=== PATIENT | female | born 1940 | race Caucasian/White ===

== ENCOUNTER 2017-02-17 21:15 | Inpatient (IN) | payer MEDICARE, BC ==
[~2017-02-17] VITALS: Ht 162.6 cm; Wt 72.8 kg
[~2017-02-17 21:15] MED LIST: ADVAIR IH; ASPIRIN 32325 MG/TAB PO; AZULFIDINE ENT500 MG PO; COUMADIN4 MG PO; IPRATROPIUM BROM3 M1 IH; LASIX 20MG TABL20 MG PO; LEXAPRO 10MG10 MG PO; LIPITOR 10MG10 MG PO; LISINOPRIL/HCTZ1 TA1 PO; LORTAB 5/500 501 TAB PO; MASON NATURAL2000 IU PO; NEURONTIN100 MG/CAP PO; NORCO 325 MG-51 TAB PO; PERCOCET 5/321 UDTAB PO; PREDNISONE10 MG PO; PRILOSEC10 MG PO; PRINIVIL10 MG PO; PRINZIDE 12.5 M1 TAB PO; RT SPIRIVA18 MCG IH; SULFASALAZINE PO; ZOCOR 40MG40 MG PO; spiriva handihaler
[2017-02-17 22:08] LABS: BASO % 0.3 % (0.0-2.0); EOS % 0.1 % (0-4.0); GRAN # 5.8 (1.4-6.5); GRAN % 72.3 % (42.2-75.2); HEMATOCRIT 41.8 % (37.0-47.0); HEMOGLOBIN 13.2 g/dl (12.5-16.0); LYMPH # 1.2 (1.2-3.4); LYMPH % 15.1 % (20.0-51.0); MEAN CELL VOLUME 99 fl (80.0-100.0); MEAN CORPUSCULAR HEMOGLOBIN 31 pg (27.0-31.0); MEAN CORPUSCULAR HGB CONC 32 g/dl (33.0-37.0); MEAN PLATELET VOLUME 10.2 fl (7.4-10.4); MONO % 11.9 % (1.7-9.3); PLATELET COUNT 106 K/mm3 (130-400); RED BLOOD COUNT 4.24 M/mm3 (4.10-5.30); REDCELL DISTRIBUTION WIDTH-CV 16.5 % (11.5-14.5)
[2017-02-17 22:22] LABS: ADJUSTED CALCIUM 9.5 mg/dL (8.4-10.2); ALBUMIN 3.7 gm/dL (3.5-5.0); BILIRUBIN,TOTAL 1.1 mg/dL (0.0-1.0); CALCIUM 9.3 mg/dL (8.4-10.2); CREATININE, serum 1.95 mg/dL (0.52-1.25); POTASSIUM 4.8 mmol/L (3.4-5.0); TOTAL PROTEIN 7.4 gm/dL (6.4-8.2)
[2017-02-17] MEDS ORDERED: LIPITOR20 MG PO (23:01)
[2017-02-17] MEDS ORDERED: TOPROL XL 25MG25 MG PO (23:02)
[2017-02-17] MEDS ORDERED: ANORO IH (23:03)
[2017-02-17] MEDS ORDERED: HCTZ12.5TAB PO (23:09)
[2017-02-18 01:26] VITALS: BP 151/88; PULSE 79; TEMP 97.5
[2017-02-18] MEDS ORDERED: PREDNISONE10 MG PO (01:43)
[2017-02-18] MEDS ORDERED: PREDNISONE 5MG5 MG PO (01:44)
[2017-02-18] MEDS ORDERED: COUMADIN 3MG3 MG/TAB PO (01:49)
[2017-02-18 03:37] VITALS: BP 135/83; PULSE 86; TEMP 98.1
[2017-02-18 07:22] LABS: INR 2.2 (0.8-3.0); PROTHROMBIN TIME 25.5 SECONDS (9.7-12.8)
[2017-02-18 07:38] VITALS: BP 135/80; PULSE 89; TEMP 98.7
[2017-02-18 11:28] VITALS: BP 140/88; PULSE 70; TEMP 98.8
[2017-02-18 16:00] VITALS: BP 148/86; PULSE 69; TEMP 98.5
[2017-02-18 23:28] VITALS: BP 143/78; PULSE 72; TEMP 97.9
[2017-02-19 04:30] VITALS: BP 159/65; PULSE 85; TEMP 99
[2017-02-19 07:51] VITALS: BP 151/94; PULSE 108; TEMP 98.4
[2017-02-19 09:29] LABS: INR 2.6 (0.8-3.0); PROTHROMBIN TIME 29.6 SECONDS (9.7-12.8)
[2017-02-19 11:55] VITALS: BP 131/79; PULSE 67; TEMP 97.6
[2017-02-19 15:56] VITALS: BP 135/83; PULSE 70; TEMP 97.1
[2017-02-19 19:19] LABS: PH 5 (5-8); SQUAMOUS EPITHELIAL None Seen /hpf; URINE APPEARANCE Clear; URINE BACTERIA None Seen /hpf; URINE BILIRUBIN Negative (NEGATIVE); URINE BLOOD Negative (NEGATIVE); URINE COLOR Yellow; URINE GLUCOSE Negative (NEGATIVE); URINE KETONE Negative (NEGATIVE); URINE RBC None Seen /hpf; URINE UROBILINOGEN Negative (NEGATIVE); URINE WBC 0-2 /hpf
[2017-02-19 19:42] VITALS: BP 149/81; PULSE 62; TEMP 97.8
[2017-02-20] VITALS (7 sets, daily range): BP systolic 116–162; BP diastolic 69–94; PULSE 64–74; TEMP 97.7–98.5
[2017-02-20 09:11] LABS: INR 2.8 (0.8-3.0); PROTHROMBIN TIME 32.3 SECONDS (9.7-12.8)
[2017-02-21 04:56] VITALS: BP 148/84; PULSE 72; TEMP 98.4
[2017-02-21 07:31] VITALS: BP 137/90; PULSE 70; TEMP 97.8
[2017-02-21 07:50] LABS: BASO % 0.2 % (0.0-2.0); EOS # 0.1 (0.0-0.7); EOS % 1.2 % (0-4.0); GRAN # 3.4 (1.4-6.5); GRAN % 69.1 % (42.2-75.2); HEMATOCRIT 38.6 % (37.0-47.0); LYMPH # 0.9 (1.2-3.4); MEAN CELL VOLUME 100 fl (80.0-100.0); MEAN CORPUSCULAR HEMOGLOBIN 31 pg (27.0-31.0); MEAN CORPUSCULAR HGB CONC 31 g/dl (33.0-37.0); MEAN PLATELET VOLUME 10.3 fl (7.4-10.4); MONO # 0.6 (0.1-0.6); MONO % 11.3 % (1.7-9.3); PLATELET COUNT 126 K/mm3 (130-400); RED BLOOD COUNT 3.86 M/mm3 (4.10-5.30); REDCELL DISTRIBUTION WIDTH-CV 16.2 % (11.5-14.5); WHITE BLOOD COUNT 4.9 K/mm3 (4.8-10.8)
[2017-02-21 08:09] LABS: INR 3.2 (0.8-3.0); PROTHROMBIN TIME 37.2 SECONDS (9.7-12.8)
[2017-02-21 08:22] LABS: CREATININE, serum 1.65 mg/dL (0.52-1.25); POTASSIUM 3.7 mmol/L (3.4-5.0)
[2017-02-21 12:06] VITALS: BP 142/68; PULSE 58; TEMP 97.8
[2017-02-21 12:26] VITALS: BP 142/68; PULSE 58; TEMP 97.8
[2017-02-21] MEDS ORDERED: COUMADIN4 MG PO (12:26)
[2017-02-21] MEDS ORDERED: COUMADIN 3MG3 MG/TAB PO (12:27)
== END 2017-02-21 14:53 | DRG 554 ==
LOC: COL.ER 21:15 → MEDICAL 02-18 00:37
PROVIDERS: Emergency Medicine; Internal Medicine; Nurse Practitioner
DX: M87.852 Other osteonecrosis, left femur (principal); C56.9 Malignant neoplasm of unspecified ovary; N18.4 Chronic kidney disease, stage 4 (severe); N17.9 Acute kidney failure, unspecified; I12.9 Hypertensive chronic kidney disease with stage 1 through stage 4 chronic kidney disease, or unspecified chronic kidney disease; M06.9 Rheumatoid arthritis, unspecified; E78.5 Hyperlipidemia, unspecified; G62.9 Polyneuropathy, unspecified; J44.9 Chronic obstructive pulmonary disease, unspecified; I10 Essential (primary) hypertension; R33.9 Retention of urine, unspecified; Z86.718 Personal history of other venous thrombosis and embolism; Z87.891 Personal history of nicotine dependence; Z79.01 Long term (current) use of anticoagulants
CPT/HCPCS: 99233-AI; 99239; G8987-GO; G8988-GO; J7030; J7512

== ENCOUNTER 2017-03-22 15:23 | Inpatient (IN) | payer MEDICARE, BC ==
[~2017-03-22] VITALS: Ht 162.6 cm; Wt 79.7 kg
[~2017-03-22 15:23] MED LIST changes: +ANORO IH; +COUMADIN 3MG3 MG/TAB PO; +HCTZ12.5TAB PO; +LIPITOR20 MG PO; +PREDNISONE 5MG5 MG PO; +TOPROL XL 25MG25 MG PO
[2017-04-12] MEDS ORDERED: COUMADIN4 MG PO (23:55)
[2017-04-12] MEDS ORDERED: PREDNISONE 5MG5 MG PO (23:58)
[2017-04-12] MEDS ORDERED: MIRALAX PA17 GM/Dose PO (23:59)
[2017-04-12] MEDS ORDERED: AZULFIDINE ENT500 MG PO (23:59)
[2017-04-13] MEDS ORDERED: NORCO 325 MG-51 TAB PO (00:01)
[2017-04-13] MEDS ORDERED: NYSTATIN OR100 MU/ML PO (04:18)
[2017-04-16] MEDS ORDERED: SODIUM BICARBO650 MG PO (10:55)
[2017-04-16] MEDS ORDERED: NEURONTIN100 MG/CAP PO (10:55)
[2017-04-16] MEDS ORDERED: PREDNISONE 5MG5 MG PO (11:02)
[2017-04-16] MEDS ORDERED: COUMADIN 1MG1 MG/TAB PO (11:02)
[2017-04-16] MEDS ORDERED: ZOFRAN 4MG T4 MG/TAB PO (11:03)
[2017-04-16] MEDS ORDERED: NORCO 325 MG-51 TAB PO (11:04)
[2017-04-16] MEDS ORDERED: TYLENOL 325MG325 MG PO (11:04)
[2017-04-16] MEDS ORDERED: LASIX 20MG TABL20 MG PO (11:04)
[2017-04-28] VITALS (9 sets, daily range): BP systolic 78–128; BP diastolic 50–77; PULSE 87–103; TEMP 97–97.6
[2017-04-28] MEDS ORDERED: FENTANYL 12MCG TD (11:23)
[2017-04-28] MEDS ORDERED: LASIX 40MG TABL40 MG PO (11:25)
[2017-04-28] MEDS ORDERED: PREDNISONE 2.52.5 MG PO (11:28)
[2017-04-28] MEDS ORDERED: ALMACONE 360 M360 ML PO (11:32)
[2017-04-28] MEDS ORDERED: DULCOLAX S10 MG/SUPP RC (11:32)
[2017-04-28] MEDS ORDERED: IMODIUM A-D2 MG PO (11:33)
[2017-04-28] MEDS ORDERED: MILK OF MA400 MG/52 PO (11:33)
[2017-04-28 11:56] LABS: INR 1.4 (0.8-3.0); PROTHROMBIN TIME 16.2 SECONDS (9.7-12.8)
[2017-04-28 22:00] LABS: COLLECTION METHOD CLEAN CATCH
[2017-04-28 22:03] LABS: BASO % 0.1 % (0.0-2.0); GRAN # 7.8 (1.4-6.5); GRAN % 90.4 % (42.2-75.2); LYMPH # 0.4 (1.2-3.4); LYMPH % 4.5 % (20.0-51.0); MEAN CELL VOLUME 101 fl (80.0-100.0); MEAN CORPUSCULAR HGB CONC 30 g/dl (33.0-37.0); MEAN PLATELET VOLUME 10.5 fl (7.4-10.4); MONO # 0.4 (0.1-0.6); MONO % 4.4 % (1.7-9.3); PLATELET COUNT 93 K/mm3 (130-400); RED BLOOD COUNT 2.44 M/mm3 (4.10-5.30); WHITE BLOOD COUNT 8.6 K/mm3 (4.8-10.8)
[2017-04-28 22:07] LABS: MUCOUS Present /lpf; PH 5 (5-8); SQUAMOUS EPITHELIAL 0-2 /hpf; URINE APPEARANCE Clear; URINE BACTERIA None Seen /hpf; URINE BILIRUBIN Negative (NEGATIVE); URINE BLOOD 2+ (NEGATIVE); URINE COLOR Yellow; URINE GLUCOSE Negative (NEGATIVE); URINE KETONE Negative (NEGATIVE); URINE LEUKOCYTE ESTERASE Negative (NEGATIVE); URINE PROTEIN(semi-quant) 1+ (NEGATIVE); URINE RBC 0-2 /hpf; URINE UROBILINOGEN Negative (NEGATIVE)
[2017-04-28 22:09] LABS: HEMATOCRIT 24.7 % (37.0-47.0); HEMOGLOBIN 7.3 g/dl (12.5-16.0); MEAN CORPUSCULAR HEMOGLOBIN 30 pg (27.0-31.0)
[2017-04-28 22:19] LABS: ADJUSTED CALCIUM 8.8 mg/dL (8.4-10.2); ALBUMIN 1.9 gm/dL (3.5-5.0); BILIRUBIN,TOTAL 0.6 mg/dL (0.0-1.0); C-REACTIVE PROTEIN 7.2 mg/dL (0.0-0.9); CALCIUM 7.1 mg/dL (8.4-10.2); CREATININE, serum 1.12 mg/dL (0.52-1.25); POTASSIUM 3.6 mmol/L (3.4-5.0); TOTAL PROTEIN 4.2 gm/dL (6.4-8.2)
[2017-04-28 22:30] LABS: ERYTHROCYTE SEDIMENTATION RATE 100 mm/hr (0-30)
[2017-04-29] VITALS (36 sets, daily range): BP systolic 11–129; BP diastolic 43–70; PULSE 74–168; TEMP 96.8–98.9
[2017-04-29 02:24] LABS: HEMATOCRIT 18.7 % (37.0-47.0); HEMOGLOBIN 5.5 g/dl (12.5-16.0)
[2017-04-29 08:13] LABS: BASO % 0.1 % (0.0-2.0); GRAN # 6.4 (1.4-6.5); GRAN % 86.8 % (42.2-75.2); LYMPH # 0.6 (1.2-3.4); LYMPH % 7.8 % (20.0-51.0); MEAN CORPUSCULAR HGB CONC 31 g/dl (33.0-37.0); MEAN PLATELET VOLUME 10.7 fl (7.4-10.4); MONO # 0.4 (0.1-0.6); PLATELET COUNT 76 K/mm3 (130-400); RED BLOOD COUNT 2.93 M/mm3 (4.10-5.30); WHITE BLOOD COUNT 7.3 K/mm3 (4.8-10.8)
[2017-04-29 08:14] LABS: HEMATOCRIT 27.9 % (37.0-47.0); HEMOGLOBIN 8.7 g/dl (12.5-16.0); MEAN CELL VOLUME 95 fl (80.0-100.0); MEAN CORPUSCULAR HEMOGLOBIN 30 pg (27.0-31.0)
[2017-04-29 08:30] LABS: CALCIUM 7.1 mg/dL (8.4-10.2); CREATININE, serum 1.14 mg/dL (0.52-1.25); POTASSIUM 3.9 mmol/L (3.4-5.0)
[2017-04-29 09:22] LABS: INR 1.4 (0.8-3.0); PROTHROMBIN TIME 15.7 SECONDS (9.7-12.8)
[2017-04-29 13:27] LABS: HEMATOCRIT 27.8 % (37.0-47.0); HEMOGLOBIN 8.6 g/dl (12.5-16.0)
[2017-04-30] VITALS (13 sets, daily range): BP systolic 108–136; BP diastolic 62–86; PULSE 44–102; TEMP 97.2–99
[2017-04-30 06:44] LABS: BASO % 0.2 % (0.0-2.0); GRAN # 4.8 (1.4-6.5); GRAN % 78.6 % (42.2-75.2); LYMPH # 0.8 (1.2-3.4); LYMPH % 13.2 % (20.0-51.0); MEAN CELL VOLUME 98 fl (80.0-100.0); MEAN CORPUSCULAR HGB CONC 30 g/dl (33.0-37.0); MEAN PLATELET VOLUME 10.9 fl (7.4-10.4); MONO # 0.4 (0.1-0.6); MONO % 7.3 % (1.7-9.3); PLATELET COUNT 68 K/mm3 (130-400); RED BLOOD COUNT 2.46 M/mm3 (4.10-5.30); WHITE BLOOD COUNT 6.1 K/mm3 (4.8-10.8)
[2017-04-30 06:45] LABS: HEMOGLOBIN 7.2 g/dl (12.5-16.0); MEAN CORPUSCULAR HEMOGLOBIN 29 pg (27.0-31.0)
[2017-04-30 06:54] LABS: CALCIUM 7.5 mg/dL (8.4-10.2); CREATININE, serum 1.27 mg/dL (0.52-1.25); POTASSIUM 3.2 mmol/L (3.4-5.0)
[2017-04-30 07:51] LABS: INR 1.6 (0.8-3.0); PROTHROMBIN TIME 17.7 SECONDS (9.7-12.8)
[2017-04-30 13:30] LABS: HEMATOCRIT 24.2 % (37.0-47.0); HEMOGLOBIN 7.5 g/dl (12.5-16.0)
[2017-05-01 02:49] VITALS: BP 135/74; PULSE 102; TEMP 97.7
[2017-05-01 05:11] VITALS: BP 139/78; PULSE 91; TEMP 98.3
[2017-05-01 06:26] LABS: BASO % 0.2 % (0.0-2.0); EOS % 0.7 % (0-4.0); GRAN # 3.9 (1.4-6.5); GRAN % 73.5 % (42.2-75.2); LYMPH % 18.5 % (20.0-51.0); MEAN CELL VOLUME 98 fl (80.0-100.0); MEAN CORPUSCULAR HGB CONC 30 g/dl (33.0-37.0); MEAN PLATELET VOLUME 10.9 fl (7.4-10.4); MONO # 0.3 (0.1-0.6); MONO % 5.8 % (1.7-9.3); PLATELET COUNT 71 K/mm3 (130-400); RED BLOOD COUNT 2.57 M/mm3 (4.10-5.30); WHITE BLOOD COUNT 5.3 K/mm3 (4.8-10.8)
[2017-05-01 06:36] LABS: HEMATOCRIT 25.2 % (37.0-47.0); HEMOGLOBIN 7.6 g/dl (12.5-16.0); MEAN CORPUSCULAR HEMOGLOBIN 30 pg (27.0-31.0)
[2017-05-01 06:41] LABS: CALCIUM 7.5 mg/dL (8.4-10.2); CREATININE, serum 1.2 mg/dL (0.52-1.25); MAGNESIUM 1.4 mg/dL (1.6-2.3); POTASSIUM 3.6 mmol/L (3.4-5.0)
[2017-05-01 09:41] LABS: INR 1.7 (0.8-3.0); PROTHROMBIN TIME 19.4 SECONDS (9.7-12.8)
[2017-05-01 10:07] VITALS: BP 122/66; PULSE 111; TEMP 98.3
[2017-05-01 13:04] VITALS: BP 129/83; PULSE 98; TEMP 98.1
[2017-05-01 18:14] VITALS: BP 126/74; PULSE 118; TEMP 98.6
[2017-05-01 22:04] VITALS: BP 144/79; PULSE 98; TEMP 98.1
[2017-05-02 02:00] VITALS: BP 146/79; PULSE 107; TEMP 98.7
[2017-05-02 05:55] VITALS: BP 129/71; PULSE 100; TEMP 97.8
[2017-05-02 07:26] LABS: MEAN CELL VOLUME 99 fl (80.0-100.0); MEAN CORPUSCULAR HGB CONC 30 g/dl (33.0-37.0); MEAN PLATELET VOLUME 11.4 fl (7.4-10.4); PLATELET COUNT 80 K/mm3 (130-400); RED BLOOD COUNT 2.75 M/mm3 (4.10-5.30); WHITE BLOOD COUNT 5.9 K/mm3 (4.8-10.8)
[2017-05-02 07:31] LABS: ADD PATHOLOGY DIFF REVIEW NO; HEMATOCRIT 27.1 % (37.0-47.0); HEMOGLOBIN 8.1 g/dl (12.5-16.0); MEAN CORPUSCULAR HEMOGLOBIN 29 pg (27.0-31.0)
[2017-05-02 07:37] LABS: CALCIUM 7.9 mg/dL (8.4-10.2); CREATININE, serum 1.07 mg/dL (0.52-1.25); MAGNESIUM 1.6 mg/dL (1.6-2.3); POTASSIUM 3.9 mmol/L (3.4-5.0)
[2017-05-02 07:55] LABS: C-REACTIVE PROTEIN 15.9 mg/dL (0.0-0.9)
[2017-05-02 08:17] LABS: BAND 8 % (0-10); EOSINOPHIL 1 % (0-4); LYMPHOCYTE 23 % (20.0-51.0); NEUTROPHILS 63 % (42.0-75.2); PLATELET ESTIMATE NORMAL (NORMAL); TOTAL CELLS COUNTED 100
[2017-05-02 08:18] LABS: ANISOCYTOSIS 3+; HYPOCHROMIA 2+
[2017-05-02 09:35] VITALS: BP 144/75; PULSE 105; TEMP 98.6
[2017-05-02 14:27] VITALS: BP 134/79; PULSE 103; TEMP 98
[2017-05-02 18:16] VITALS: BP 136/87; PULSE 103; TEMP 98.3
[2017-05-02 22:03] VITALS: BP 134/75; PULSE 105; TEMP 97.7
[2017-05-03 02:04] VITALS: BP 125/69; PULSE 108; TEMP 98
[2017-05-03 06:36] VITALS: BP 126/71; PULSE 112; TEMP 99.9
[2017-05-03 08:14] LABS: BASO % 0.4 % (0.0-2.0); GRAN # 3.9 (1.4-6.5); LYMPH % 18.9 % (20.0-51.0); MEAN CELL VOLUME 99 fl (80.0-100.0); MEAN CORPUSCULAR HGB CONC 30 g/dl (33.0-37.0); MEAN PLATELET VOLUME 10.6 fl (7.4-10.4); MONO # 0.4 (0.1-0.6); PLATELET COUNT 81 K/mm3 (130-400); RED BLOOD COUNT 2.74 M/mm3 (4.10-5.30); WHITE BLOOD COUNT 5.4 K/mm3 (4.8-10.8)
[2017-05-03 08:15] LABS: HEMATOCRIT 27.1 % (37.0-47.0); MEAN CORPUSCULAR HEMOGLOBIN 29 pg (27.0-31.0)
[2017-05-03 08:21] LABS: CALCIUM 8.2 mg/dL (8.4-10.2); CREATININE, serum 1.06 mg/dL (0.52-1.25); POTASSIUM 3.9 mmol/L (3.4-5.0)
[2017-05-03 09:37] VITALS: BP 128/31; BP 99/54; PULSE 110; PULSE 60; TEMP 98.6
[2017-05-03 14:27] VITALS: BP 142/73; PULSE 102; TEMP 98.5
[2017-05-03 18:11] VITALS: BP 151/83; PULSE 103; TEMP 98.5
[2017-05-03 21:51] VITALS: BP 142/78; PULSE 109; TEMP 98.5
[2017-05-04] VITALS (10 sets, daily range): BP systolic 102–152; BP diastolic 57–90; PULSE 96–113; TEMP 97.7–100.5
[2017-05-04 06:56] LABS: BASO % 0.2 % (0.0-2.0); EOS # 0.1 (0.0-0.7); EOS % 1.2 % (0-4.0); GRAN # 3.2 (1.4-6.5); GRAN % 65.8 % (42.2-75.2); LYMPH # 1.1 (1.2-3.4); MEAN CELL VOLUME 98 fl (80.0-100.0); MEAN CORPUSCULAR HGB CONC 30 g/dl (33.0-37.0); MONO # 0.4 (0.1-0.6); MONO % 8.8 % (1.7-9.3); PLATELET COUNT 84 K/mm3 (130-400); RED BLOOD COUNT 2.71 M/mm3 (4.10-5.30); WHITE BLOOD COUNT 4.9 K/mm3 (4.8-10.8)
[2017-05-04 06:58] LABS: HEMATOCRIT 26.5 % (37.0-47.0); MEAN CORPUSCULAR HEMOGLOBIN 30 pg (27.0-31.0)
[2017-05-04 07:00] LABS: CALCIUM 8.1 mg/dL (8.4-10.2); CREATININE, serum 1.1 mg/dL (0.52-1.25); MAGNESIUM 1.5 mg/dL (1.6-2.3); POTASSIUM 3.8 mmol/L (3.4-5.0)
[2017-05-05] VITALS (18 sets, daily range): BP systolic 92–127; BP diastolic 48–71; PULSE 97–114; TEMP 97.7–98.9
[2017-05-05 06:10] LABS: BASO % 0.2 % (0.0-2.0); EOS # 0.1 (0.0-0.7); EOS % 1.5 % (0-4.0); GRAN # 3.8 (1.4-6.5); GRAN % 62.5 % (42.2-75.2); LYMPH # 1.5 (1.2-3.4); LYMPH % 25.2 % (20.0-51.0); MEAN CELL VOLUME 101 fl (80.0-100.0); MEAN CORPUSCULAR HGB CONC 29 g/dl (33.0-37.0); MEAN PLATELET VOLUME 11.4 fl (7.4-10.4); MONO # 0.6 (0.1-0.6); MONO % 10.1 % (1.7-9.3); PLATELET COUNT 84 K/mm3 (130-400); RED BLOOD COUNT 2.15 M/mm3 (4.10-5.30); WHITE BLOOD COUNT 6.1 K/mm3 (4.8-10.8)
[2017-05-05 06:23] LABS: HEMATOCRIT 21.6 % (37.0-47.0); HEMOGLOBIN 6.3 g/dl (12.5-16.0); MEAN CORPUSCULAR HEMOGLOBIN 29 pg (27.0-31.0)
[2017-05-05 07:09] LABS: CALCIUM 7.9 mg/dL (8.4-10.2); CREATININE, serum 1.34 mg/dL (0.52-1.25); MAGNESIUM 1.6 mg/dL (1.6-2.3); POTASSIUM 4.2 mmol/L (3.4-5.0)
[2017-05-05 22:09] LABS: HEMATOCRIT 33.2 % (37.0-47.0); HEMOGLOBIN 10.7 g/dl (12.5-16.0)
[2017-05-06] VITALS (11 sets, daily range): BP systolic 102–125; BP diastolic 50–92; PULSE 77–100; TEMP 96.5–98.9
[2017-05-06 07:00] LABS: BASO % 0.1 % (0.0-2.0); GRAN # 7.4 (1.4-6.5); GRAN % 86.1 % (42.2-75.2); LYMPH # 0.7 (1.2-3.4); LYMPH % 8.5 % (20.0-51.0); MEAN CORPUSCULAR HGB CONC 33 g/dl (33.0-37.0); MEAN PLATELET VOLUME 10.9 fl (7.4-10.4); MONO # 0.4 (0.1-0.6); MONO % 4.4 % (1.7-9.3); PLATELET COUNT 68 K/mm3 (130-400); RED BLOOD COUNT 3.65 M/mm3 (4.10-5.30); WHITE BLOOD COUNT 8.6 K/mm3 (4.8-10.8)
[2017-05-06 07:07] LABS: HEMATOCRIT 33.2 % (37.0-47.0); HEMOGLOBIN 10.8 g/dl (12.5-16.0); MEAN CELL VOLUME 91 fl (80.0-100.0); MEAN CORPUSCULAR HEMOGLOBIN 30 pg (27.0-31.0)
[2017-05-06 07:17] LABS: CALCIUM 7.4 mg/dL (8.4-10.2); CREATININE, serum 1.48 mg/dL (0.52-1.25); POTASSIUM 4.2 mmol/L (3.4-5.0)
[2017-05-06 17:08] LABS: HEMATOCRIT 29.9 % (37.0-47.0); HEMOGLOBIN 9.7 g/dl (12.5-16.0)
[2017-05-06 17:14] LABS: ALBUMIN 1.9 gm/dL (3.5-5.0); CALCIUM 7.5 mg/dL (8.4-10.2); CREATININE, serum 1.73 mg/dL (0.52-1.25); PHOSPHOROUS 5.2 mg/dL (2.5-4.5); POTASSIUM 4.3 mmol/L (3.4-5.0)
[2017-05-07] VITALS (8 sets, daily range): BP systolic 97–132; BP diastolic 47–67; PULSE 72–105; TEMP 97.4–98.2
[2017-05-07 06:20] LABS: BASO % 0.1 % (0.0-2.0); GRAN # 5.9 (1.4-6.5); GRAN % 81.4 % (42.2-75.2); LYMPH # 0.8 (1.2-3.4); LYMPH % 10.8 % (20.0-51.0); MEAN CELL VOLUME 91 fl (80.0-100.0); MEAN CORPUSCULAR HGB CONC 32 g/dl (33.0-37.0); MEAN PLATELET VOLUME 10.8 fl (7.4-10.4); MONO # 0.5 (0.1-0.6); MONO % 6.7 % (1.7-9.3); PLATELET COUNT 72 K/mm3 (130-400); RED BLOOD COUNT 2.88 M/mm3 (4.10-5.30); WHITE BLOOD COUNT 7.3 K/mm3 (4.8-10.8)
[2017-05-07 06:21] LABS: HEMATOCRIT 26.3 % (37.0-47.0); HEMOGLOBIN 8.5 g/dl (12.5-16.0); MEAN CORPUSCULAR HEMOGLOBIN 30 pg (27.0-31.0)
[2017-05-07 06:26] LABS: CALCIUM 7.4 mg/dL (8.4-10.2); CREATININE, serum 1.87 mg/dL (0.52-1.25); POTASSIUM 4.4 mmol/L (3.4-5.0)
[2017-05-07 13:26] LABS: URINE PROTEIN:CREAT RATIO 2.11 (0.00-0.14)
[2017-05-08 00:14] VITALS: BP 99/54; PULSE 85; TEMP 98.9
[2017-05-08 05:32] VITALS: BP 107/52; PULSE 80; TEMP 97.3
[2017-05-08 06:18] LABS: MEAN CELL VOLUME 93 fl (80.0-100.0); MEAN CORPUSCULAR HGB CONC 32 g/dl (33.0-37.0); MEAN PLATELET VOLUME 10.5 fl (7.4-10.4); PLATELET COUNT 62 K/mm3 (130-400); RED BLOOD COUNT 2.55 M/mm3 (4.10-5.30); WHITE BLOOD COUNT 5.6 K/mm3 (4.8-10.8)
[2017-05-08 06:24] LABS: HEMATOCRIT 23.8 % (37.0-47.0); HEMOGLOBIN 7.6 g/dl (12.5-16.0); MEAN CORPUSCULAR HEMOGLOBIN 30 pg (27.0-31.0)
[2017-05-08 06:25] LABS: ADD PATHOLOGY DIFF REVIEW NO
[2017-05-08 06:38] LABS: C-REACTIVE PROTEIN 7.6 mg/dL (0.0-0.9); CALCIUM 7.2 mg/dL (8.4-10.2); CREATININE, serum 2.06 mg/dL (0.52-1.25)
[2017-05-08 07:24] LABS: ANISOCYTOSIS 1+; BAND 3 % (0-10); HYPERSEGMENTED POLYS PRESENT; LYMPHOCYTE 11 % (20.0-51.0); NEUTROPHILS 78 % (42.0-75.2); PLATELET ESTIMATE DECREASED (NORMAL); TOTAL CELLS COUNTED 100
[2017-05-08 07:25] LABS: HYPOCHROMIA 1+
[2017-05-08 08:03] LABS: ERYTHROCYTE SEDIMENTATION RATE 16 mm/hr (0-30)
[2017-05-08 09:43] VITALS: BP 115/68; PULSE 90; TEMP 97.4
[2017-05-08 13:18] VITALS: BP 105/55; PULSE 89; TEMP 98.1
[2017-05-08 17:26] VITALS: BP 108/70; PULSE 95; TEMP 98.1
[2017-05-08 21:22] VITALS: BP 114/60; PULSE 92; TEMP 98.4
[2017-05-09 02:50] VITALS: BP 134/58; PULSE 91; TEMP 98.9
[2017-05-09 05:33] VITALS: BP 132/64; PULSE 82; TEMP 98.7
[2017-05-09 06:46] LABS: EOS # 0.1 (0.0-0.7); GRAN # 5.1 (1.4-6.5); GRAN % 72.9 % (42.2-75.2); LYMPH # 1.3 (1.2-3.4); LYMPH % 18.3 % (20.0-51.0); MEAN CELL VOLUME 95 fl (80.0-100.0); MEAN CORPUSCULAR HGB CONC 32 g/dl (33.0-37.0); MEAN PLATELET VOLUME 10.8 fl (7.4-10.4); MONO # 0.5 (0.1-0.6); MONO % 7.1 % (1.7-9.3); PLATELET COUNT 77 K/mm3 (130-400); RED BLOOD COUNT 2.81 M/mm3 (4.10-5.30); WHITE BLOOD COUNT 7.1 K/mm3 (4.8-10.8)
[2017-05-09 06:47] LABS: HEMATOCRIT 26.7 % (37.0-47.0); HEMOGLOBIN 8.4 g/dl (12.5-16.0); MEAN CORPUSCULAR HEMOGLOBIN 30 pg (27.0-31.0)
[2017-05-09 07:01] LABS: CALCIUM 7.3 mg/dL (8.4-10.2); CREATININE, serum 1.95 mg/dL (0.52-1.25); PHOSPHOROUS 4.2 mg/dL (2.5-4.5); POTASSIUM 3.6 mmol/L (3.4-5.0)
[2017-05-09 09:19] VITALS: BP 116/61; PULSE 96; TEMP 98.6
[2017-05-09 12:35] VITALS: BP 123/70; PULSE 99; TEMP 98.2
[2017-05-09 16:57] VITALS: BP 108/66; PULSE 106; TEMP 97.7
[2017-05-09 22:23] VITALS: BP 125/77; PULSE 93; TEMP 99.2
[2017-05-10 02:25] VITALS: BP 107/63; PULSE 86; TEMP 97.8
[2017-05-10 06:12] VITALS: BP 133/79; PULSE 89; TEMP 97.3
[2017-05-10 07:13] LABS: BASO % 0.2 % (0.0-2.0); EOS % 0.6 % (0-4.0); GRAN # 4.7 (1.4-6.5); GRAN % 71.3 % (42.2-75.2); LYMPH # 1.3 (1.2-3.4); LYMPH % 20.2 % (20.0-51.0); MEAN CELL VOLUME 95 fl (80.0-100.0); MEAN CORPUSCULAR HGB CONC 31 g/dl (33.0-37.0); MEAN PLATELET VOLUME 10.6 fl (7.4-10.4); MONO # 0.5 (0.1-0.6); MONO % 7.1 % (1.7-9.3); PLATELET COUNT 73 K/mm3 (130-400); RED BLOOD COUNT 2.83 M/mm3 (4.10-5.30); WHITE BLOOD COUNT 6.6 K/mm3 (4.8-10.8)
[2017-05-10 07:15] LABS: HEMOGLOBIN 8.4 g/dl (12.5-16.0); MEAN CORPUSCULAR HEMOGLOBIN 30 pg (27.0-31.0)
[2017-05-10 07:28] LABS: CALCIUM 7.4 mg/dL (8.4-10.2); CREATININE, serum 1.86 mg/dL (0.52-1.25); POTASSIUM 3.6 mmol/L (3.4-5.0)
[2017-05-10 09:47] VITALS: BP 120/64; PULSE 91; TEMP 98
[2017-05-10 14:01] VITALS: BP 105/61; PULSE 97; TEMP 98.8
[2017-05-10 17:25] VITALS: BP 121/68; PULSE 94; TEMP 98.1
[2017-05-10 22:00] VITALS: BP 126/66; PULSE 86; TEMP 98.3
[2017-05-11 02:00] VITALS: BP 135/73; PULSE 85; TEMP 98
[2017-05-11 06:00] VITALS: BP 131/66; PULSE 89; TEMP 98.3
[2017-05-11 07:12] LABS: BASO % 0.1 % (0.0-2.0); EOS # 0.1 (0.0-0.7); EOS % 0.7 % (0-4.0); GRAN # 5.2 (1.4-6.5); GRAN % 72.9 % (42.2-75.2); LYMPH # 1.3 (1.2-3.4); MEAN CELL VOLUME 96 fl (80.0-100.0); MEAN CORPUSCULAR HGB CONC 31 g/dl (33.0-37.0); MEAN PLATELET VOLUME 11.2 fl (7.4-10.4); MONO # 0.5 (0.1-0.6); MONO % 7.6 % (1.7-9.3); PLATELET COUNT 82 K/mm3 (130-400); RED BLOOD COUNT 2.81 M/mm3 (4.10-5.30); WHITE BLOOD COUNT 7.1 K/mm3 (4.8-10.8)
[2017-05-11 07:14] LABS: HEMATOCRIT 27.1 % (37.0-47.0); HEMOGLOBIN 8.3 g/dl (12.5-16.0); MEAN CORPUSCULAR HEMOGLOBIN 30 pg (27.0-31.0)
[2017-05-11 07:24] LABS: CALCIUM 7.3 mg/dL (8.4-10.2); CREATININE, serum 1.66 mg/dL (0.52-1.25); MAGNESIUM 1.2 mg/dL (1.6-2.3); POTASSIUM 3.5 mmol/L (3.4-5.0)
[2017-05-11] MEDS ORDERED: ROCEPHIN 2GM VIAL21 IV (07:49)
[2017-05-11] MEDS ORDERED: XARELTO10 MG PO (07:50)
[2017-05-11] MEDS ORDERED: HEPARIN 50500 U/5 ML IV (07:51)
[2017-05-11] MEDS ORDERED: NS INT FLUSH 1010 ML IV (07:54)
[2017-05-11] MEDS ORDERED: PROTONIX 40MG T40 MG PO (07:55)
[2017-05-11] MEDS ORDERED: FENTANYL 12MCG TD (07:56)
[2017-05-11] MEDS ORDERED: NORCO 325 MG-7.1 TAB PO (07:56)
[2017-05-11] MEDS ORDERED: ROXICODONE 55 MG/TAB PO (07:56)
[2017-05-11] MEDS ORDERED: MAG-OX 400400 MG/TAB PO (09:10)
[2017-05-11 09:52] VITALS: BP 116/57; PULSE 96; TEMP 97.7
[2017-05-11 12:16] VITALS: BP 116/57; PULSE 96; TEMP 97.7
== END 2017-05-11 14:05 | DRG 466 ==
LOC: JCC 04-28 07:30 → SURG 04-28 09:55 → JCC 04-28 09:55 → SURG 04-28 20:37
PROVIDERS: Family Medicine; Internal Medicine; Nurse Anesthetist, Certified Registered; Nurse Practitioner Family; Orthopaedic Surgery; Physician Assistant
PROC: 0SHB08Z Insertion of Spacer into Left Hip Joint, Open Approach (ICD-10-PCS; 2017-04-28)
PROC: 0S9B30Z Drainage of Left Hip Joint with Drainage Device, Percutaneous Approach (ICD-10-PCS; 2017-04-29)
PROC: 0S9B3ZX Drainage of Left Hip Joint, Percutaneous Approach, Diagnostic (ICD-10-PCS; 2017-05-04)
PROC: 0SPB08Z Removal of Spacer from Left Hip Joint, Open Approach (ICD-10-PCS; 2017-05-05)
PROC: 0SHB08Z Insertion of Spacer into Left Hip Joint, Open Approach (ICD-10-PCS; 2017-05-05)
PROC: 0SRB0J9 Replacement of Left Hip Joint with Synthetic Substitute, Cemented, Open Approach (ICD-10-PCS; principal; 2017-05-05 15:00)
DX: M00.252 Other streptococcal arthritis, left hip (principal); K68.12 Psoas muscle abscess; M87.852 Other osteonecrosis, left femur; N17.9 Acute kidney failure, unspecified; E87.2 Acidosis; M80.052A Age-related osteoporosis with current pathological fracture, left femur, initial encounter for fracture; I82.721 Chronic embolism and thrombosis of deep veins of right upper extremity; M16.12 Unilateral primary osteoarthritis, left hip; B95.4 Other streptococcus as the cause of diseases classified elsewhere; J44.9 Chronic obstructive pulmonary disease, unspecified; J45.909 Unspecified asthma, uncomplicated; M06.9 Rheumatoid arthritis, unspecified; I12.9 Hypertensive chronic kidney disease with stage 1 through stage 4 chronic kidney disease, or unspecified chronic kidney disease; N18.3 Chronic kidney disease, stage 3 (moderate); Z85.43 Personal history of malignant neoplasm of ovary; Z87.891 Personal history of nicotine dependence; Z79.01 Long term (current) use of anticoagulants; G62.9 Polyneuropathy, unspecified; D69.6 Thrombocytopenia, unspecified; E87.6 Hypokalemia; E83.42 Hypomagnesemia; D50.0 Iron deficiency anemia secondary to blood loss (chronic)
CPT/HCPCS: 99222; 99232-AI; 99233-AI; A4315; A9284; C1713; C1729; C1776; C9113; J0690; J0696; J1100; J1170; J1644; J1650; J1720; J1940; J2250; J2270; J2274; J2370; J2405; J2543; J2704; J3010; J3260; J3370; J3475; J7030; J7050; J7512; P9016; P9047; Q9967

== ENCOUNTER → 2017-03-31 | Outpatient (CLI) | payer MEDICARE, BC ==
[2017-03-31 10:59] LABS: ARTERIAL BLD GAS O2 SATURATION 92.2 % (92-100); ARTERIAL BLD GAS TCO2 CT 27.6; ARTERIAL BLOOD GAS BASE EXCESS 1.8 (-2-2); ARTERIAL BLOOD GAS HCO3 26.4 meq/L (22-26); ARTERIAL BLOOD GAS PHT 7.42 C (7.35-7.45); ARTERIAL BLOOD GAS PO2 67.3 mmHg (80-100); ARTERIAL BLOOD GAS PO2T 67.3 (80-100); ARTERIAL BLOOD GAS pH 7.42 (7.35-7.45); OXYHEMOGLOBIN 91.1 %
[2017-03-31 11:00] LABS: ALLEN TEST YES; ALLENS TEST RESULT PASS; ATS? YES
== END ==
LOC: COL.PUL 08:22
PROVIDERS: Internal Medicine Pulmonary Disease
DX: J44.9 Chronic obstructive pulmonary disease, unspecified (principal); R91.8 Other nonspecific abnormal finding of lung field; Z96.611 Presence of right artificial shoulder joint; Z87.891 Personal history of nicotine dependence

== ENCOUNTER 2017-04-12 22:19 | Inpatient (IN) | payer MEDICARE, BC ==
[~2017-04-12] VITALS: Ht 162.6 cm; Wt 79.7 kg
[2017-04-12 22:54] LABS: ARTERIAL BLD GAS O2 SATURATION 95.1 % (92-100); ARTERIAL BLD GAS TCO2 CT 26.6; ARTERIAL BLOOD GAS HCO3 25.3 meq/L (22-26); ARTERIAL BLOOD GAS PHT 7.39 C (7.35-7.45); ARTERIAL BLOOD GAS PO2 81.6 mmHg (80-100); ARTERIAL BLOOD GAS PO2T 81.6 (80-100); ARTERIAL BLOOD GAS pH 7.39 (7.35-7.45)
[2017-04-12 22:55] LABS: ALLEN TEST NO; ATS? YES
[2017-04-12 23:09] LABS: MEAN CELL VOLUME 90 fl (80.0-100.0); MEAN CORPUSCULAR HGB CONC 33 g/dl (33.0-37.0); MEAN PLATELET VOLUME 10.1 fl (7.4-10.4); PLATELET COUNT 160 K/mm3 (130-400); RED BLOOD COUNT 4.02 M/mm3 (4.10-5.30); WHITE BLOOD COUNT 11.6 K/mm3 (4.8-10.8)
[2017-04-12 23:11] LABS: HEMATOCRIT 36.3 % (37.0-47.0); HEMOGLOBIN 11.9 g/dl (12.5-16.0); MEAN CORPUSCULAR HEMOGLOBIN 30 pg (27.0-31.0)
[2017-04-12 23:11] LABS: COLLECTION METHOD CLEAN CATCH
[2017-04-12 23:12] LABS: ADD PATHOLOGY DIFF REVIEW NO
[2017-04-12 23:21] LABS: ADJUSTED CALCIUM 9.2 mg/dL (8.4-10.2); ALBUMIN 2.6 gm/dL (3.5-5.0); BILIRUBIN,TOTAL 0.7 mg/dL (0.0-1.0); CALCIUM 8.1 mg/dL (8.4-10.2); POTASSIUM 4.7 mmol/L (3.4-5.0)
[2017-04-12 23:27] LABS: CREATININE, serum 3.12 mg/dL (0.52-1.25)
[2017-04-12 23:34] LABS: MUCOUS Present /lpf; PH 5 (5-8); SQUAMOUS EPITHELIAL 0-2 /hpf; URINE APPEARANCE Clear; URINE BACTERIA Rare /hpf; URINE BILIRUBIN Negative (NEGATIVE); URINE BLOOD 1+ (NEGATIVE); URINE COLOR Yellow; URINE GLUCOSE Negative (NEGATIVE); URINE KETONE Negative (NEGATIVE); URINE LEUKOCYTE ESTERASE Negative (NEGATIVE); URINE PROTEIN(semi-quant) Negative (NEGATIVE); URINE RBC 0-2 /hpf; URINE UROBILINOGEN Negative (NEGATIVE); URINE WBC 0-2 /hpf
[2017-04-12] MEDS ORDERED: COUMADIN4 MG PO (23:55)
[2017-04-12] MEDS ORDERED: PREDNISONE 5MG5 MG PO (23:58)
[2017-04-12] MEDS ORDERED: AZULFIDINE ENT500 MG PO (23:59)
[2017-04-12] MEDS ORDERED: MIRALAX PA17 GM/Dose PO (23:59)
[2017-04-13] VITALS (1187 sets, daily range): BP systolic 74–131; BP diastolic 50–76; PULSE 64–99; TEMP 97.5–98.6; O2SAT 84–100
[2017-04-13] MEDS ORDERED: NORCO 325 MG-51 TAB PO (00:01)
[2017-04-13 00:03] LABS: INR 6.3 (0.8-3.0); PROTHROMBIN TIME 74.9 SECONDS (9.7-12.8)
[2017-04-13 01:50] LABS: BAND 7 % (0-10); LYMPHOCYTE 8 % (20.0-51.0); NEUTROPHILS 82 % (42.0-75.2); TOTAL CELLS COUNTED 100
[2017-04-13 01:56] LABS: ANISOCYTOSIS 2+; POLYCHROMASIA 1+
[2017-04-13 01:57] LABS: OVALOCYTES 1+; PLATELET ESTIMATE NORMAL (NORMAL); TOXIC GRANULATION PRESENT
[2017-04-13] MEDS ORDERED: NYSTATIN OR100 MU/ML PO (04:18)
[2017-04-13 06:12] LABS: CALCIUM 7.7 mg/dL (8.4-10.2); CREATININE, serum 2.84 mg/dL (0.52-1.25); POTASSIUM 4.6 mmol/L (3.4-5.0)
[2017-04-13 09:25] LABS: PROTHROMBIN TIME > 320.0 SECONDS (9.7-12.8)
[2017-04-13 09:26] LABS: INR > 25.2 (0.8-3.0)
[2017-04-13 10:35] LABS: CALCIUM 7.4 mg/dL (8.4-10.2); CREATININE, serum 2.66 mg/dL (0.52-1.25); POTASSIUM 4.5 mmol/L (3.4-5.0)
[2017-04-13 11:16] LABS: ADD PATHOLOGY DIFF REVIEW NO
[2017-04-13 11:24] LABS: MEAN CELL VOLUME 94 fl (80.0-100.0); MEAN CORPUSCULAR HGB CONC 32 g/dl (33.0-37.0); MEAN PLATELET VOLUME 10.8 fl (7.4-10.4); PLATELET COUNT 151 K/mm3 (130-400); RED BLOOD COUNT 3.41 M/mm3 (4.10-5.30); WHITE BLOOD COUNT 14.5 K/mm3 (4.8-10.8)
[2017-04-13 11:25] LABS: HEMATOCRIT 32.1 % (37.0-47.0); HEMOGLOBIN 10.1 g/dl (12.5-16.0); MEAN CORPUSCULAR HEMOGLOBIN 30 pg (27.0-31.0)
[2017-04-13 11:33] LABS: CALCIUM 7.4 mg/dL (8.4-10.2); CREATININE, serum 2.65 mg/dL (0.52-1.25); POTASSIUM 4.5 mmol/L (3.4-5.0)
[2017-04-13 11:58] LABS: BAND 34 % (0-10); HYPOCHROMIA 1+; LYMPHOCYTE 5 % (20.0-51.0); NEUTROPHILS 61 % (42.0-75.2); PLATELET ESTIMATE NORMAL (NORMAL); TOTAL CELLS COUNTED 100
[2017-04-13 12:00] LABS: PROTHROMBIN TIME > 320.0 SECONDS (9.7-12.8)
[2017-04-13 12:01] LABS: INR 25.2 (0.8-3.0)
[2017-04-13 13:58] LABS: FIBRINOGEN 759 mg/dL (200-450)
[2017-04-13 18:01] LABS: PROTHROMBIN TIME > 320.0 SECONDS (9.7-12.8)
[2017-04-13 18:03] LABS: INR > 25.0 (0.8-3.0)
[2017-04-13 18:39] LABS: PARTIAL THROMBOPLASTIN TIME 80.1 SECONDS (26.0-37.0)
[2017-04-13 20:18] LABS: COLLECTION METHOD CLEAN CATCH
[2017-04-13 20:25] LABS: BUDDING YEAST Present /hpf; MUCOUS Present /lpf; PH 5 (5-8); SQUAMOUS EPITHELIAL 0-2 /hpf; URINE APPEARANCE Hazy; URINE BACTERIA Rare /hpf; URINE BILIRUBIN Negative (NEGATIVE); URINE BLOOD 2+ (NEGATIVE); URINE COLOR Yellow; URINE GLUCOSE Negative (NEGATIVE); URINE KETONE Negative (NEGATIVE); URINE LEUKOCYTE ESTERASE Negative (NEGATIVE); URINE PROTEIN(semi-quant) Negative (NEGATIVE); URINE RBC 20-50 /hpf; URINE UROBILINOGEN Negative (NEGATIVE)
[2017-04-13 21:54] LABS: ADD PATHOLOGY DIFF REVIEW NO
[2017-04-13 21:57] LABS: MEAN CELL VOLUME 94 fl (80.0-100.0); MEAN CORPUSCULAR HGB CONC 31 g/dl (33.0-37.0); MEAN PLATELET VOLUME 10.5 fl (7.4-10.4); PLATELET COUNT 185 K/mm3 (130-400); RED BLOOD COUNT 3.44 M/mm3 (4.10-5.30); WHITE BLOOD COUNT 19.2 K/mm3 (4.8-10.8)
[2017-04-13 21:59] LABS: HEMATOCRIT 32.3 % (37.0-47.0); HEMOGLOBIN 10.1 g/dl (12.5-16.0); MEAN CORPUSCULAR HEMOGLOBIN 29 pg (27.0-31.0)
[2017-04-13 22:06] LABS: CALCIUM 7.1 mg/dL (8.4-10.2)
[2017-04-13 22:07] LABS: CREATININE, serum 2.09 mg/dL (0.52-1.25)
[2017-04-13 22:17] LABS: BAND 30 % (0-10); LYMPHOCYTE 2 % (20.0-51.0); NEUTROPHILS 60 % (42.0-75.2); TOTAL CELLS COUNTED 100
[2017-04-14] VITALS (1039 sets, daily range): BP systolic 84–122; BP diastolic 53–72; PULSE 71–86; TEMP 97–98; O2SAT 68–100
[2017-04-14 05:45] LABS: MEAN CELL VOLUME 94 fl (80.0-100.0); MEAN CORPUSCULAR HGB CONC 32 g/dl (33.0-37.0); MEAN PLATELET VOLUME 10.3 fl (7.4-10.4); PLATELET COUNT 194 K/mm3 (130-400); RED BLOOD COUNT 3.45 M/mm3 (4.10-5.30)
[2017-04-14 05:51] LABS: INR 2.7 (0.8-3.0); PROTHROMBIN TIME 30.9 SECONDS (9.7-12.8)
[2017-04-14 05:52] LABS: ADD PATHOLOGY DIFF REVIEW NO; HEMATOCRIT 32.3 % (37.0-47.0); HEMOGLOBIN 10.3 g/dl (12.5-16.0); MEAN CORPUSCULAR HEMOGLOBIN 30 pg (27.0-31.0); WHITE BLOOD COUNT 19.9 K/mm3 (4.8-10.8)
[2017-04-14 06:04] LABS: BAND 6 % (0-10); NEUTROPHILS 92 % (42.0-75.2); TOTAL CELLS COUNTED 100
[2017-04-14 06:15] LABS: CALCIUM 7.8 mg/dL (8.4-10.2); CREATININE, serum 2.26 mg/dL (0.52-1.25); MAGNESIUM 1.8 mg/dL (1.6-2.3); POTASSIUM 4.3 mmol/L (3.4-5.0)
[2017-04-14 13:16] LABS: HEMATOCRIT 29.5 % (37.0-47.0); HEMOGLOBIN 9.4 g/dl (12.5-16.0)
[2017-04-14 13:28] LABS: CALCIUM 7.7 mg/dL (8.4-10.2); CREATININE, serum 2.17 mg/dL (0.52-1.25)
[2017-04-14 21:22] LABS: HEMOGLOBIN 8.4 g/dl (12.5-16.0)
[2017-04-14 21:34] LABS: CALCIUM 7.6 mg/dL (8.4-10.2); CREATININE, serum 2.2 mg/dL (0.52-1.25)
[2017-04-15] VITALS (402 sets, daily range): BP systolic 72–132; BP diastolic 44–73; PULSE 73–95; TEMP 97–98.8; O2SAT 81–100
[2017-04-15 05:50] LABS: INR 1.8 (0.8-3.0); PROTHROMBIN TIME 20.7 SECONDS (9.7-12.8)
[2017-04-15 07:44] LABS: MEAN CELL VOLUME 93 fl (80.0-100.0); MEAN CORPUSCULAR HGB CONC 32 g/dl (33.0-37.0); MEAN PLATELET VOLUME 10.8 fl (7.4-10.4); PLATELET COUNT 140 K/mm3 (130-400); RED BLOOD COUNT 3.01 M/mm3 (4.10-5.30); WHITE BLOOD COUNT 13.2 K/mm3 (4.8-10.8)
[2017-04-15 07:46] LABS: ADD PATHOLOGY DIFF REVIEW NO; MEAN CORPUSCULAR HEMOGLOBIN 30 pg (27.0-31.0)
[2017-04-15 07:54] LABS: CREATININE, serum 2.15 mg/dL (0.52-1.25); MAGNESIUM 1.8 mg/dL (1.6-2.3); PHOSPHOROUS 5.1 mg/dL (2.5-4.5); POTASSIUM 4.1 mmol/L (3.4-5.0)
[2017-04-15 10:28] LABS: ANISOCYTOSIS 2+; BAND 24 % (0-10); LYMPHOCYTE 5 % (20.0-51.0); NEUTROPHILS 71 % (42.0-75.2); NUCLEATED RED BLOOD CELL 1 (0-6); PLATELET ESTIMATE NORMAL (NORMAL); TOTAL CELLS COUNTED 100
[2017-04-16 04:24] VITALS: BP 118/60; PULSE 97; TEMP 97.6
[2017-04-16 07:38] LABS: INR 2.1 (0.8-3.0); PROTHROMBIN TIME 23.8 SECONDS (9.7-12.8)
[2017-04-16 07:44] LABS: CREATININE, serum 2.13 mg/dL (0.52-1.25); MAGNESIUM 1.8 mg/dL (1.6-2.3); PHOSPHOROUS 3.8 mg/dL (2.5-4.5); POTASSIUM 3.9 mmol/L (3.4-5.0)
[2017-04-16 08:38] VITALS: BP 148/73; PULSE 87; TEMP 97.5
[2017-04-16 10:21] LABS: MEAN CELL VOLUME 94 fl (80.0-100.0); MEAN CORPUSCULAR HGB CONC 31 g/dl (33.0-37.0); MEAN PLATELET VOLUME 10.8 fl (7.4-10.4); PLATELET COUNT 123 K/mm3 (130-400); RED BLOOD COUNT 2.77 M/mm3 (4.10-5.30); WHITE BLOOD COUNT 13.3 K/mm3 (4.8-10.8)
[2017-04-16 10:24] LABS: ADD PATHOLOGY DIFF REVIEW NO; HEMATOCRIT 26.1 % (37.0-47.0); HEMOGLOBIN 8.2 g/dl (12.5-16.0); MEAN CORPUSCULAR HEMOGLOBIN 30 pg (27.0-31.0)
[2017-04-16] MEDS ORDERED: SODIUM BICARBO650 MG PO (10:55)
[2017-04-16] MEDS ORDERED: NEURONTIN100 MG/CAP PO (10:55)
[2017-04-16] MEDS ORDERED: PREDNISONE 5MG5 MG PO (11:02)
[2017-04-16] MEDS ORDERED: COUMADIN 1MG1 MG/TAB PO (11:02)
[2017-04-16] MEDS ORDERED: ZOFRAN 4MG T4 MG/TAB PO (11:03)
[2017-04-16] MEDS ORDERED: NORCO 325 MG-51 TAB PO (11:04)
[2017-04-16] MEDS ORDERED: TYLENOL 325MG325 MG PO (11:04)
[2017-04-16] MEDS ORDERED: LASIX 20MG TABL20 MG PO (11:04)
[2017-04-16 11:22] LABS: BAND 10 % (0-10); LYMPHOCYTE 2 % (20.0-51.0); METAMYELOCYTE 1 % (0-0); NEUTROPHILS 87 % (42.0-75.2); PLATELET ESTIMATE DECREASED (NORMAL); TOTAL CELLS COUNTED 100
[2017-04-16 11:23] LABS: HYPERSEGMENTED POLYS PRESENT
[2017-04-16 11:24] LABS: ANISOCYTOSIS 1+
== END 2017-04-16 16:33 | DRG 871 ==
LOC: COL.ER 22:19 → ICU 23:46 → MEDICAL 04-15 15:25
PROVIDERS: Family Medicine; Internal Medicine; Internal Medicine Nephrology; Internal Medicine Pulmonary Disease; Nurse Practitioner Family; Physician Assistant
DX: A41.9 Sepsis, unspecified organism (principal); R65.21 Severe sepsis with septic shock; E87.1 Hypo-osmolality and hyponatremia; M87.852 Other osteonecrosis, left femur; N17.9 Acute kidney failure, unspecified; C56.2 Malignant neoplasm of left ovary; E44.0 Moderate protein-calorie malnutrition; N18.3 Chronic kidney disease, stage 3 (moderate); I12.9 Hypertensive chronic kidney disease with stage 1 through stage 4 chronic kidney disease, or unspecified chronic kidney disease; J44.9 Chronic obstructive pulmonary disease, unspecified; Z87.891 Personal history of nicotine dependence; Z86.718 Personal history of other venous thrombosis and embolism; Z79.01 Long term (current) use of anticoagulants; M06.9 Rheumatoid arthritis, unspecified
CPT/HCPCS: 99223-AI; 99233-AI; 99239; J0456; J0692; J0696; J1170; J1650; J1720; J1940; J2405; J3370; J3430; J7030; J7050; J7060; J7512

== ENCOUNTER → 2017-04-20 | Outpatient (REF) ==
[~2017-04-20] MED LIST changes: +COUMADIN 1MG1 MG/TAB PO; +MIRALAX PA17 GM/Dose PO; +NYSTATIN OR100 MU/ML PO; +SODIUM BICARBO650 MG PO; +TYLENOL 325MG325 MG PO; +ZOFRAN 4MG T4 MG/TAB PO
[2017-04-20 12:01] LABS: MEAN CELL VOLUME 97 fl (80.0-100.0); MEAN CORPUSCULAR HGB CONC 30 g/dl (33.0-37.0); MEAN PLATELET VOLUME 12.3 fl (7.4-10.4); PLATELET COUNT 97 K/mm3 (130-400); RED BLOOD COUNT 3.59 M/mm3 (4.10-5.30); WHITE BLOOD COUNT 16.3 K/mm3 (4.8-10.8)
[2017-04-20 12:02] LABS: ADD PATHOLOGY DIFF REVIEW NO; HEMATOCRIT 34.7 % (37.0-47.0); HEMOGLOBIN 10.5 g/dl (12.5-16.0); MEAN CORPUSCULAR HEMOGLOBIN 29 pg (27.0-31.0)
[2017-04-20 12:38] LABS: ADJUSTED CALCIUM 9.5 mg/dL (8.4-10.2); ALBUMIN 2.4 gm/dL (3.5-5.0); BILIRUBIN,TOTAL 1.3 mg/dL (0.0-1.0); CALCIUM 8.2 mg/dL (8.4-10.2); CREATININE, serum 1.47 mg/dL (0.52-1.25); MAGNESIUM 1.5 mg/dL (1.6-2.3); POTASSIUM 3.6 mmol/L (3.4-5.0); TOTAL PROTEIN 5.5 gm/dL (6.4-8.2)
[2017-04-20 13:17] LABS: BAND 11 % (0-10); LYMPHOCYTE 1 % (20.0-51.0); NEUTROPHILS 87 % (42.0-75.2); TOTAL CELLS COUNTED 100
[2017-04-20 13:18] LABS: PLATELET ESTIMATE DECREASED (NORMAL)
[2017-04-20 13:19] LABS: ANISOCYTOSIS 1+
[2017-04-20 13:20] LABS: HYPOCHROMIA 2+
== END ==
LOC: ZCOL.LAB 11:43
PROVIDERS: Internal Medicine
DX: N18.4 Chronic kidney disease, stage 4 (severe) (principal); A41.9 Sepsis, unspecified organism

== ENCOUNTER → 2017-05-14 | Outpatient (REF) ==
[~2017-05-14] MED LIST changes: +ALMACONE 360 M360 ML PO; +DULCOLAX S10 MG/SUPP RC; +FENTANYL 12MCG TD; +HEPARIN 50500 U/5 ML IV; +IMODIUM A-D2 MG PO; +LASIX 40MG TABL40 MG PO; +MAG-OX 400400 MG/TAB PO; +MILK OF MA400 MG/52 PO; +NORCO 325 MG-7.1 TAB PO; +NS INT FLUSH 1010 ML IV; +PREDNISONE 2.52.5 MG PO; +PROTONIX 40MG T40 MG PO; +ROCEPHIN 2GM VIAL21 IV; +ROXICODONE 55 MG/TAB PO; +XARELTO10 MG PO
[2017-05-14 08:26] LABS: BASO % 0.2 % (0.0-2.0); EOS % 0.8 % (0-4.0); GRAN % 60.8 % (42.2-75.2); LYMPH # 1.3 (1.2-3.4); LYMPH % 25.7 % (20.0-51.0); MEAN CELL VOLUME 99 fl (80.0-100.0); MEAN CORPUSCULAR HGB CONC 30 g/dl (33.0-37.0); MEAN PLATELET VOLUME 10.7 fl (7.4-10.4); MONO # 0.6 (0.1-0.6); MONO % 12.1 % (1.7-9.3); PLATELET COUNT 99 K/mm3 (130-400); RED BLOOD COUNT 2.81 M/mm3 (4.10-5.30); WHITE BLOOD COUNT 4.9 K/mm3 (4.8-10.8)
[2017-05-14 08:27] LABS: HEMATOCRIT 27.8 % (37.0-47.0); HEMOGLOBIN 8.4 g/dl (12.5-16.0); MEAN CORPUSCULAR HEMOGLOBIN 30 pg (27.0-31.0)
[2017-05-14 08:40] LABS: ADJUSTED CALCIUM 9.2 mg/dL (8.4-10.2); ALBUMIN 2.2 gm/dL (3.5-5.0); BILIRUBIN,TOTAL 0.6 mg/dL (0.0-1.0); C-REACTIVE PROTEIN 6.8 mg/dL (0.0-0.9); CALCIUM 7.8 mg/dL (8.4-10.2); CREATININE, serum 1.75 mg/dL (0.52-1.25); POTASSIUM 3.1 mmol/L (3.4-5.0); TOTAL PROTEIN 5.2 gm/dL (6.4-8.2)
[2017-05-14 08:52] LABS: ERYTHROCYTE SEDIMENTATION RATE 69 mm/hr (0-30)
== END ==
LOC: ZCOL.LAB 08:01
PROVIDERS: Internal Medicine
DX: N17.9 Acute kidney failure, unspecified (principal); A41.9 Sepsis, unspecified organism

== ENCOUNTER 2017-06-23 11:07 | Inpatient (IN) | payer MEDICARE, BC ==
[~2017-06-23] VITALS: Ht 162.6 cm; Wt 65.2 kg
[2017-06-23 11:51] LABS: BASO % 0.2 % (0.0-2.0); GRAN # 3.5 (1.4-6.5); GRAN % 67.1 % (42.2-75.2); LYMPH # 1.2 (1.2-3.4); LYMPH % 22.6 % (20.0-51.0); MEAN CELL VOLUME 100 fl (80.0-100.0); MEAN CORPUSCULAR HGB CONC 31 g/dl (33.0-37.0); MEAN PLATELET VOLUME 10.2 fl (7.4-10.4); MONO # 0.5 (0.1-0.6); MONO % 9.9 % (1.7-9.3); PLATELET COUNT 135 K/mm3 (130-400); RED BLOOD COUNT 3.17 M/mm3 (4.10-5.30); REDCELL DISTRIBUTION WIDTH-CV 16.9 % (11.5-14.5)
[2017-06-23 11:52] LABS: HEMATOCRIT 31.7 % (37.0-47.0); HEMOGLOBIN 9.7 g/dl (12.5-16.0); MEAN CORPUSCULAR HEMOGLOBIN 31 pg (27.0-31.0)
[2017-06-23 11:56] LABS: INR 1.5 (0.8-3.0); PROTHROMBIN TIME 17.2 SECONDS (9.7-12.8)
[2017-06-23 11:59] LABS: ALBUMIN 3.4 gm/dL (3.5-5.0); BILIRUBIN,TOTAL 0.7 mg/dL (0.0-1.0); CALCIUM 9.2 mg/dL (8.4-10.2); CREATININE, serum 1.72 mg/dL (0.52-1.25); PARTIAL THROMBOPLASTIN TIME 31.9 SECONDS (26.0-37.0); POTASSIUM 3.7 mmol/L (3.4-5.0); TOTAL PROTEIN 7.2 gm/dL (6.4-8.2)
[2017-06-23 12:12] LABS: TROPONIN-I 0.072 ng/mL (0.000-0.034)
[2017-06-23 12:51] LABS: CREATINE KINASE 76 U/L (30-135)
[2017-06-23 16:16] VITALS: BP 120/71; PULSE 96; TEMP 99.4
[2017-06-23] MEDS ORDERED: CEPHALEXIN500 M1 PO (16:55)
[2017-06-23] MEDS ORDERED: SODIUM BICARBO650 MG PO (16:58)
[2017-06-23] MEDS ORDERED: K-TAB10 PO (17:00)
[2017-06-23 21:39] VITALS: BP 147/65; PULSE 99; TEMP 99.8
[2017-06-24 03:47] VITALS: BP 140/65; PULSE 94; TEMP 100.2
[2017-06-24 08:58] LABS: BASO % 0.3 % (0.0-2.0); GRAN # 2.1 (1.4-6.5); GRAN % 56.4 % (42.2-75.2); LYMPH % 27.6 % (20.0-51.0); MEAN CELL VOLUME 103 fl (80.0-100.0); MEAN CORPUSCULAR HGB CONC 30 g/dl (33.0-37.0); MEAN PLATELET VOLUME 11.3 fl (7.4-10.4); MONO # 0.6 (0.1-0.6); MONO % 15.4 % (1.7-9.3); PLATELET COUNT 117 K/mm3 (130-400); REDCELL DISTRIBUTION WIDTH-CV 17.2 % (11.5-14.5)
[2017-06-24 08:59] VITALS: BP 123/73; PULSE 87; TEMP 98
[2017-06-24 09:04] LABS: HEMATOCRIT 25.8 % (37.0-47.0); HEMOGLOBIN 7.8 g/dl (12.5-16.0); MEAN CORPUSCULAR HEMOGLOBIN 31 pg (27.0-31.0)
[2017-06-24 09:27] LABS: ERYTHROCYTE SEDIMENTATION RATE > 140 mm/hr (0-30)
[2017-06-24 13:32] VITALS: BP 118/63; PULSE 93; TEMP 99.3
[2017-06-24 14:05] VITALS: BP 118/63; PULSE 93
[2017-06-24 18:15] VITALS: BP 135/75; PULSE 87; TEMP 99.3
[2017-06-24 22:25] VITALS: BP 116/50; PULSE 86; TEMP 98.3
[2017-06-25] VITALS (9 sets, daily range): BP systolic 90–165; BP diastolic 47–83; PULSE 83–122; TEMP 97.5–99.2
[2017-06-25 06:56] LABS: BASO % 0.3 % (0.0-2.0); GRAN # 3.4 (1.4-6.5); GRAN % 56.1 % (42.2-75.2); MEAN CELL VOLUME 105 fl (80.0-100.0); MEAN CORPUSCULAR HGB CONC 29 g/dl (33.0-37.0); MEAN PLATELET VOLUME 11.1 fl (7.4-10.4); MONO # 0.6 (0.1-0.6); MONO % 10.3 % (1.7-9.3); PLATELET COUNT 131 K/mm3 (130-400); RED BLOOD COUNT 2.91 M/mm3 (4.10-5.30); REDCELL DISTRIBUTION WIDTH-CV 17.1 % (11.5-14.5)
[2017-06-25 06:58] LABS: HEMATOCRIT 30.6 % (37.0-47.0); HEMOGLOBIN 8.9 g/dl (12.5-16.0); MEAN CORPUSCULAR HEMOGLOBIN 31 pg (27.0-31.0)
[2017-06-25 07:39] LABS: ERYTHROCYTE SEDIMENTATION RATE > 140 mm/hr (0-30)
[2017-06-25 07:44] LABS: CALCIUM 8.9 mg/dL (8.4-10.2); CREATININE, serum 1.75 mg/dL (0.52-1.25); POTASSIUM 3.6 mmol/L (3.4-5.0)
[2017-06-25 07:59] LABS: C-REACTIVE PROTEIN 15.3 mg/dL (0.0-0.9)
[2017-06-26 02:08] VITALS: BP 117/73; PULSE 96; TEMP 98.4
[2017-06-26 06:02] VITALS: BP 123/69; PULSE 94; TEMP 98.2
[2017-06-26 06:54] LABS: BASO % 0.2 % (0.0-2.0); GRAN # 3.4 (1.4-6.5); GRAN % 69.8 % (42.2-75.2); LYMPH % 20.3 % (20.0-51.0); MEAN CELL VOLUME 103 fl (80.0-100.0); MEAN CORPUSCULAR HGB CONC 30 g/dl (33.0-37.0); MEAN PLATELET VOLUME 10.3 fl (7.4-10.4); MONO # 0.5 (0.1-0.6); MONO % 9.3 % (1.7-9.3); PLATELET COUNT 118 K/mm3 (130-400); RED BLOOD COUNT 2.74 M/mm3 (4.10-5.30); REDCELL DISTRIBUTION WIDTH-CV 17.2 % (11.5-14.5)
[2017-06-26 06:56] LABS: HEMATOCRIT 28.3 % (37.0-47.0); HEMOGLOBIN 8.4 g/dl (12.5-16.0); MEAN CORPUSCULAR HEMOGLOBIN 31 pg (27.0-31.0)
[2017-06-26 07:12] LABS: CALCIUM 8.9 mg/dL (8.4-10.2); CREATININE, serum 1.68 mg/dL (0.52-1.25); POTASSIUM 3.9 mmol/L (3.4-5.0)
[2017-06-26 09:34] VITALS: BP 135/65; PULSE 97; TEMP 98.1
[2017-06-26 13:39] VITALS: BP 135/58; PULSE 100; TEMP 98.4
[2017-06-26 17:40] VITALS: BP 142/79; PULSE 89; TEMP 97
[2017-06-26 21:04] VITALS: BP 146/74; PULSE 90; TEMP 98.3
[2017-06-27] VITALS (449 sets, daily range): BP systolic 102–168; BP diastolic 55–84; PULSE 89–101; TEMP 91–98.9; O2SAT 73–100
[2017-06-27 06:31] LABS: MEAN CELL VOLUME 102 fl (80.0-100.0); MEAN CORPUSCULAR HGB CONC 30 g/dl (33.0-37.0); MEAN PLATELET VOLUME 11.1 fl (7.4-10.4); PLATELET COUNT 133 K/mm3 (130-400); RED BLOOD COUNT 2.63 M/mm3 (4.10-5.30); REDCELL DISTRIBUTION WIDTH-CV 16.9 % (11.5-14.5)
[2017-06-27 06:35] LABS: HEMATOCRIT 26.8 % (37.0-47.0); HEMOGLOBIN 8.1 g/dl (12.5-16.0); MEAN CORPUSCULAR HEMOGLOBIN 31 pg (27.0-31.0)
[2017-06-27 06:49] LABS: CALCIUM 8.9 mg/dL (8.4-10.2); CREATININE, serum 1.58 mg/dL (0.52-1.25); POTASSIUM 3.6 mmol/L (3.4-5.0)
[2017-06-27 07:40] LABS: BAND 4 % (0-10); LYMPHOCYTE 13 % (20.0-51.0); METAMYELOCYTE 1 % (0-0); NEUTROPHILS 76 % (42.0-75.2); PLATELET ESTIMATE DECREASED (NORMAL)
[2017-06-27 07:46] LABS: ANISOCYTOSIS 1+
[2017-06-27 07:47] LABS: HYPOCHROMIA 1+; POLYCHROMASIA 1+
[2017-06-28] VITALS (412 sets, daily range): BP systolic 91–121; BP diastolic 56–75; PULSE 89–106; TEMP 97.7–99.7; O2SAT 70–100
[2017-06-28 06:20] LABS: HEMOGLOBIN 6.7 g/dl (12.5-16.0)
[2017-06-28 06:39] LABS: CALCIUM 8.3 mg/dL (8.4-10.2); CREATININE, serum 1.41 mg/dL (0.52-1.25); POTASSIUM 3.9 mmol/L (3.4-5.0)
[2017-06-28 11:55] LABS: HEMOGLOBIN 11.2 g/dl (12.5-16.0)
[2017-06-28 18:47] LABS: HEMOGLOBIN 8.3 g/dl (12.5-16.0)
[2017-06-29 01:42] VITALS: BP 122/65; PULSE 90; TEMP 98.1
[2017-06-29 05:38] VITALS: BP 126/70; PULSE 82; TEMP 97.4
[2017-06-29 07:14] LABS: CALCIUM 8.4 mg/dL (8.4-10.2); CREATININE, serum 1.6 mg/dL (0.52-1.25); POTASSIUM 4.2 mmol/L (3.4-5.0)
[2017-06-29 07:15] LABS: HEMATOCRIT 24.1 % (37.0-47.0); HEMOGLOBIN 7.4 g/dl (12.5-16.0)
[2017-06-29 10:14] VITALS: BP 123/71; PULSE 84; TEMP 97.8
[2017-06-29 17:58] VITALS: BP 115/58; PULSE 94; TEMP 98.1
[2017-06-29 22:24] VITALS: BP 111/52; PULSE 95; TEMP 98.5
[2017-06-30 02:02] VITALS: BP 123/60; PULSE 88; TEMP 97.8
[2017-06-30 05:07] VITALS: BP 152/69; PULSE 84; TEMP 97.4
[2017-06-30 07:55] LABS: GRAN # 2.9 (1.4-6.5); GRAN % 80.6 % (42.2-75.2); LYMPH # 0.5 (1.2-3.4); LYMPH % 12.5 % (20.0-51.0); MEAN CELL VOLUME 95 fl (80.0-100.0); MEAN CORPUSCULAR HGB CONC 31 g/dl (33.0-37.0); MEAN PLATELET VOLUME 11.1 fl (7.4-10.4); MONO # 0.2 (0.1-0.6); MONO % 6.1 % (1.7-9.3); PLATELET COUNT 125 K/mm3 (130-400); RED BLOOD COUNT 2.47 M/mm3 (4.10-5.30)
[2017-06-30 08:02] LABS: CALCIUM 8.5 mg/dL (8.4-10.2); CREATININE, serum 1.48 mg/dL (0.52-1.25); POTASSIUM 3.4 mmol/L (3.4-5.0)
[2017-06-30 08:06] LABS: HEMATOCRIT 23.4 % (37.0-47.0); HEMOGLOBIN 7.2 g/dl (12.5-16.0); MEAN CORPUSCULAR HEMOGLOBIN 29 pg (27.0-31.0)
[2017-06-30 21:51] VITALS: BP 126/86; PULSE 102; TEMP 98.5
[2017-07-01 02:09] VITALS: BP 144/75; PULSE 86; TEMP 97.4
[2017-07-01 07:44] LABS: MEAN CELL VOLUME 95 fl (80.0-100.0); MEAN CORPUSCULAR HGB CONC 31 g/dl (33.0-37.0); PLATELET COUNT 146 K/mm3 (130-400); RED BLOOD COUNT 2.63 M/mm3 (4.10-5.30); REDCELL DISTRIBUTION WIDTH-CV 19.7 % (11.5-14.5)
[2017-07-01 07:45] LABS: HEMOGLOBIN 7.7 g/dl (12.5-16.0); MEAN CORPUSCULAR HEMOGLOBIN 29 pg (27.0-31.0)
[2017-07-01 08:05] LABS: C-REACTIVE PROTEIN 5.5 mg/dL (0.0-0.9); CALCIUM 8.8 mg/dL (8.4-10.2); CREATININE, serum 1.76 mg/dL (0.52-1.25); POTASSIUM 3.4 mmol/L (3.4-5.0)
[2017-07-01 08:17] LABS: ERYTHROCYTE SEDIMENTATION RATE 90 mm/hr (0-30)
[2017-07-01 09:52] VITALS: BP 133/57; PULSE 72; TEMP 98.7
[2017-07-01 09:55] LABS: BAND 14 % (0-10); HYPOCHROMIA 2+; LYMPHOCYTE 9 % (20.0-51.0); NEUTROPHILS 74 % (42.0-75.2); PLATELET ESTIMATE DECREASED (NORMAL)
[2017-07-01 13:28] VITALS: BP 145/78; PULSE 95; TEMP 97.6
[2017-07-01 18:03] VITALS: BP 126/63; PULSE 78; TEMP 98.1
[2017-07-01 21:35] VITALS: BP 136/70; PULSE 89; TEMP 97.9
[2017-07-02 01:47] VITALS: BP 140/69; PULSE 83; TEMP 98.4
[2017-07-02 05:07] VITALS: BP 151/76; PULSE 79; TEMP 97.2
[2017-07-02 05:47] LABS: MEAN CELL VOLUME 97 fl (80.0-100.0); MEAN CORPUSCULAR HGB CONC 30 g/dl (33.0-37.0); MEAN PLATELET VOLUME 10.5 fl (7.4-10.4); PLATELET COUNT 122 K/mm3 (130-400); RED BLOOD COUNT 2.45 M/mm3 (4.10-5.30)
[2017-07-02 06:02] LABS: CALCIUM 8.6 mg/dL (8.4-10.2); CREATININE, serum 1.68 mg/dL (0.52-1.25); POTASSIUM 3.8 mmol/L (3.4-5.0)
[2017-07-02 06:10] LABS: HEMATOCRIT 23.7 % (37.0-47.0); HEMOGLOBIN 7.1 g/dl (12.5-16.0); MEAN CORPUSCULAR HEMOGLOBIN 29 pg (27.0-31.0)
[2017-07-02 07:29] LABS: BAND 24 % (0-10); HYPOCHROMIA 1+; LYMPHOCYTE 7 % (20.0-51.0); NEUTROPHILS 67 % (42.0-75.2)
[2017-07-02 07:30] LABS: ANISOCYTOSIS 1+
[2017-07-02] MEDS ORDERED: VANCOMYCIN HYD750 MG IV (09:34)
[2017-07-02] MEDS ORDERED: FERROUS SU325 MG/TAB PO (09:35)
[2017-07-02] MEDS ORDERED: NORCO 325 MG-51 TAB PO (09:36)
[2017-07-02] MEDS ORDERED: OYSCO 500500 M1 PO (09:38)
[2017-07-02] MEDS ORDERED: GOOD NEIGH1200 MG/15 PO (09:40)
[2017-07-02] MEDS ORDERED: VITAMINC500CH PO (09:41)
[2017-07-02] MEDS ORDERED: DUO-KAPS1 CAP PO (09:42)
[2017-07-02 09:59] VITALS: BP 137/72; PULSE 99; TEMP 97.6
[2017-07-02 12:30] VITALS: BP 137/72; PULSE 99; TEMP 97.6
== END 2017-07-02 13:56 | DRG 500 ==
LOC: COL.ER 11:07 → MEDICAL 13:47 → SURG 13:47 → ICU 06-27 14:22 → SURG 06-28 14:00
PROVIDERS: Emergency Medicine; Internal Medicine; Internal Medicine Pulmonary Disease; Nurse Practitioner Family; Orthopaedic Surgery; Physician Assistant
PROC: 0SSBXZZ Reposition Left Hip Joint, External Approach (ICD-10-PCS; 2017-06-23)
PROC: 0QD70ZZ Extraction of Left Upper Femur, Open Approach (ICD-10-PCS; 2017-06-27)
PROC: 0SPB08Z Removal of Spacer from Left Hip Joint, Open Approach (ICD-10-PCS; principal; 2017-06-27 12:00)
DX: S73.015A Posterior dislocation of left hip, initial encounter (principal); J18.9 Pneumonia, unspecified organism; I21.A1 Myocardial infarction type 2; T84.021A Dislocation of internal left hip prosthesis, initial encounter; E87.1 Hypo-osmolality and hyponatremia; W18.30XA Fall on same level, unspecified, initial encounter; M06.9 Rheumatoid arthritis, unspecified; J44.9 Chronic obstructive pulmonary disease, unspecified; I12.9 Hypertensive chronic kidney disease with stage 1 through stage 4 chronic kidney disease, or unspecified chronic kidney disease; N18.3 Chronic kidney disease, stage 3 (moderate); Z87.891 Personal history of nicotine dependence; Z85.43 Personal history of malignant neoplasm of ovary; Z86.718 Personal history of other venous thrombosis and embolism; Z96.642 Presence of left artificial hip joint; D64.9 Anemia, unspecified; Z79.01 Long term (current) use of anticoagulants
CPT/HCPCS: 99222-AI; 99231-AI; 99232-AI; 99233-AI; 99239; A4314; A9284; A9502; J1644; J1720; J1940; J1956; J2250; J2270; J2370; J2405; J2704; J2785; J3010; J3370; J7030; J7050; J7120; J7121; J7512; L1830; P9016

== ENCOUNTER → 2017-07-05 | Outpatient (REF) ==
[~2017-07-05] MED LIST changes: +CEPHALEXIN500 M1 PO; +DUO-KAPS1 CAP PO; +FERROUS SU325 MG/TAB PO; +GOOD NEIGH1200 MG/15 PO; +K-TAB10 PO; +OYSCO 500500 M1 PO; +VANCOMYCIN HYD750 MG IV; +VITAMINC500CH PO
[2017-07-05 17:55] LABS: BASO % 0.1 % (0.0-2.0); EOS % 0.1 % (0-4.0); GRAN # 6.9 (1.4-6.5); GRAN % 85.6 % (42.2-75.2); LYMPH # 0.8 (1.2-3.4); LYMPH % 10.3 % (20.0-51.0); MEAN CELL VOLUME 97 fl (80.0-100.0); MEAN CORPUSCULAR HGB CONC 30 g/dl (33.0-37.0); MEAN PLATELET VOLUME 10.5 fl (7.4-10.4); MONO # 0.3 (0.1-0.6); MONO % 3.2 % (1.7-9.3); PLATELET COUNT 129 K/mm3 (130-400); RED BLOOD COUNT 2.75 M/mm3 (4.10-5.30); REDCELL DISTRIBUTION WIDTH-CV 20.4 % (11.5-14.5)
[2017-07-05 17:56] LABS: HEMATOCRIT 26.7 % (37.0-47.0); HEMOGLOBIN 8.1 g/dl (12.5-16.0); MEAN CORPUSCULAR HEMOGLOBIN 29 pg (27.0-31.0)
[2017-07-05 19:00] LABS: CALCIUM 8.6 mg/dL (8.4-10.2); CREATININE, serum 1.59 mg/dL (0.52-1.25); POTASSIUM 3.4 mmol/L (3.4-5.0)
[2017-07-05 19:12] LABS: VANCOMYCIN TROUGH 28.31 ug/mL (7.00-20.00)
== END ==
LOC: ZCOL.LAB 17:46
PROVIDERS: Internal Medicine
DX: Z01.89 Encounter for other specified special examinations (principal)

== ENCOUNTER → 2017-07-06 | Outpatient (REF) ==
[2017-07-06 17:36] LABS: COLLECTION METHOD CLEAN CATCH
[2017-07-06 17:49] LABS: MUCOUS Present /lpf; PH 5 (5-8); SQUAMOUS EPITHELIAL None Seen /hpf; URINE APPEARANCE Clear; URINE BACTERIA None Seen /hpf; URINE BILIRUBIN Negative (NEGATIVE); URINE BLOOD Negative (NEGATIVE); URINE COLOR Yellow; URINE GLUCOSE Negative (NEGATIVE); URINE KETONE Negative (NEGATIVE); URINE LEUKOCYTE ESTERASE Negative (NEGATIVE); URINE NITRATE Negative (NEGATIVE); URINE PROTEIN(semi-quant) Negative (NEGATIVE); URINE RBC 0-2 /hpf; URINE UROBILINOGEN Negative (NEGATIVE)
== END ==
LOC: ZCOL.LAB 17:35
PROVIDERS: Internal Medicine
DX: A41.9 Sepsis, unspecified organism (principal)

== ENCOUNTER → 2017-07-09 | Outpatient (REF) | LOC: ZCOL.LAB 08:16 | DX: Z01.89 Encounter for other specified special examinations (principal) ==

== ENCOUNTER → 2017-07-11 | Outpatient (REF) | LOC: ZCOL.LAB 11:45 | DX: Z01.89 Encounter for other specified special examinations (principal) ==

== ENCOUNTER → 2017-07-12 | Outpatient (REF) ==
[2017-07-12 12:27] LABS: BASO % 0.2 % (0.0-2.0); EOS # 0.3 (0.0-0.7); EOS % 6.9 % (0-4.0); GRAN # 3.1 (1.4-6.5); GRAN % 63.9 % (42.2-75.2); LYMPH % 20.5 % (20.0-51.0); MEAN CELL VOLUME 98 fl (80.0-100.0); MEAN CORPUSCULAR HGB CONC 30 g/dl (33.0-37.0); MEAN PLATELET VOLUME 11.1 fl (7.4-10.4); MONO # 0.4 (0.1-0.6); MONO % 8.1 % (1.7-9.3); PLATELET COUNT 165 K/mm3 (130-400); RED BLOOD COUNT 2.42 M/mm3 (4.10-5.30); REDCELL DISTRIBUTION WIDTH-CV 20.1 % (11.5-14.5)
[2017-07-12 12:43] LABS: CALCIUM 8.3 mg/dL (8.4-10.2); CREATININE, serum 1.64 mg/dL (0.52-1.25); POTASSIUM 3.5 mmol/L (3.4-5.0)
[2017-07-12 12:47] LABS: HEMATOCRIT 23.6 % (37.0-47.0); HEMOGLOBIN 7.1 g/dl (12.5-16.0); MEAN CORPUSCULAR HEMOGLOBIN 29 pg (27.0-31.0)
== END ==
LOC: ZCOL.LAB 12:18
PROVIDERS: Internal Medicine
DX: D50.0 Iron deficiency anemia secondary to blood loss (chronic) (principal); E87.6 Hypokalemia

== ENCOUNTER → 2017-07-14 | Outpatient (REF) | LOC: ZCOL.LAB 08:25 | DX: M00.252 Other streptococcal arthritis, left hip (principal) ==

== ENCOUNTER → 2017-07-17 | Outpatient (REF) | LOC: ZCOL.LAB 10:21 | DX: Z01.89 Encounter for other specified special examinations (principal) ==

== ENCOUNTER → 2017-07-19 | Outpatient (REF) ==
[2017-07-19 08:49] LABS: BASO % 0.4 % (0.0-2.0); EOS # 0.3 (0.0-0.7); EOS % 5.5 % (0-4.0); GRAN # 2.3 (1.4-6.5); LYMPH # 1.8 (1.2-3.4); LYMPH % 35.8 % (20.0-51.0); MEAN CELL VOLUME 100 fl (80.0-100.0); MEAN CORPUSCULAR HGB CONC 29 g/dl (33.0-37.0); MEAN PLATELET VOLUME 10.9 fl (7.4-10.4); MONO # 0.5 (0.1-0.6); MONO % 10.9 % (1.7-9.3); PLATELET COUNT 206 K/mm3 (130-400); RED BLOOD COUNT 2.64 M/mm3 (4.10-5.30); REDCELL DISTRIBUTION WIDTH-CV 21.3 % (11.5-14.5)
[2017-07-19 08:54] LABS: HEMATOCRIT 26.3 % (37.0-47.0); HEMOGLOBIN 7.6 g/dl (12.5-16.0); MEAN CORPUSCULAR HEMOGLOBIN 29 pg (27.0-31.0)
[2017-07-19 09:18] LABS: CALCIUM 9.2 mg/dL (8.4-10.2); CREATININE, serum 2.11 mg/dL (0.52-1.25); POTASSIUM 3.7 mmol/L (3.4-5.0)
== END ==
LOC: ZCOL.LAB 08:44
PROVIDERS: Internal Medicine
DX: N18.4 Chronic kidney disease, stage 4 (severe) (principal); L02.416 Cutaneous abscess of left lower limb; A41.9 Sepsis, unspecified organism

== ENCOUNTER → 2017-07-22 | Outpatient (REF) | LOC: ZCOL.LAB 10:20 | DX: N17.9 Acute kidney failure, unspecified (principal); A41.9 Sepsis, unspecified organism ==

== ENCOUNTER → 2017-07-26 | Outpatient (REF) ==
[2017-07-26 10:22] LABS: BASO % 0.5 % (0.0-2.0); EOS # 0.1 (0.0-0.7); EOS % 2.2 % (0-4.0); GRAN % 66.3 % (42.2-75.2); HEMATOCRIT 26.9 % (37.0-47.0); HEMOGLOBIN 7.8 g/dl (12.5-16.0); LYMPH # 1.2 (1.2-3.4); MEAN CELL VOLUME 103 fl (80.0-100.0); MEAN CORPUSCULAR HEMOGLOBIN 30 pg (27.0-31.0); MEAN CORPUSCULAR HGB CONC 29 g/dl (33.0-37.0); MEAN PLATELET VOLUME 10.3 fl (7.4-10.4); MONO # 0.6 (0.1-0.6); MONO % 10.3 % (1.7-9.3); PLATELET COUNT 178 K/mm3 (130-400); RED BLOOD COUNT 2.61 M/mm3 (4.10-5.30); REDCELL DISTRIBUTION WIDTH-CV 21.9 % (11.5-14.5)
[2017-07-26 10:51] LABS: CALCIUM 9.4 mg/dL (8.4-10.2); CREATININE, serum 2.01 mg/dL (0.52-1.25); POTASSIUM 3.5 mmol/L (3.4-5.0)
[2017-07-26 10:55] LABS: VANCOMYCIN TROUGH 19.23 ug/mL (7.00-20.00)
== END ==
LOC: ZCOL.LAB 10:17
PROVIDERS: Internal Medicine
DX: N18.4 Chronic kidney disease, stage 4 (severe) (principal); A41.9 Sepsis, unspecified organism

== ENCOUNTER → 2017-07-29 | Outpatient (REF) ==
[2017-07-29 11:31] LABS: ALBUMIN 3.2 gm/dL (3.5-5.0); BILIRUBIN,TOTAL 0.5 mg/dL (0.0-1.0); CALCIUM 9.5 mg/dL (8.4-10.2); CREATININE, serum 2.24 mg/dL (0.52-1.25); POTASSIUM 4.1 mmol/L (3.4-5.0); TOTAL PROTEIN 7.5 gm/dL (6.4-8.2)
== END ==
LOC: ZCOL.LAB 11:03
PROVIDERS: Internal Medicine
DX: A41.9 Sepsis, unspecified organism (principal); D63.8 Anemia in other chronic diseases classified elsewhere; I12.9 Hypertensive chronic kidney disease with stage 1 through stage 4 chronic kidney disease, or unspecified chronic kidney disease; N18.4 Chronic kidney disease, stage 4 (severe)

== ENCOUNTER → 2017-08-01 | Outpatient (REF) | LOC: ZCOL.LAB 10:11 | DX: A41.9 Sepsis, unspecified organism (principal) ==

== ENCOUNTER 2017-08-02 16:31 | Outpatient (RCR) | payer MEDICARE, BC ==
[~2017-08-02 16:31] MED LIST changes: -MERREM VIA500 MG/VIA IV; -NYSTATIN CREAM15 GM TP
[2017-08-03 14:15] VITALS: BP 97/56; PULSE 81; TEMP 98
[2017-08-03 14:35] VITALS: BP 97/55; PULSE 81; TEMP 98
[2017-08-03 14:50] VITALS: BP 98/53; PULSE 81; TEMP 98
[2017-08-03 15:20] VITALS: BP 93/53; PULSE 77; TEMP 98
[2017-08-04] MEDS ORDERED: NYSTATIN CREAM15 GM TP (10:52)
[2017-08-04] MEDS ORDERED: VANCOMYCIN HYD750 MG IV (11:08)
[2017-08-12] MEDS ORDERED: MERREM VIA500 MG/VIA IV (12:15)
== END 2017-08-03 16:10 | disposition home or self-care (01) ==
LOC: EUO 16:31
DX: Z45.2 Encounter for adjustment and management of vascular access device (principal)
CPT/HCPCS: J1644; J7050; P9016

== ENCOUNTER → 2017-08-02 | Outpatient (REF) ==
[~2017-08-02] MED LIST changes: +MERREM VIA500 MG/VIA IV; +NYSTATIN CREAM15 GM TP
== END ==
LOC: ZCOL.LAB 16:41
DX: D63.8 Anemia in other chronic diseases classified elsewhere (principal); A41.9 Sepsis, unspecified organism

== ENCOUNTER → 2017-08-04 | Outpatient (REF) ==
[~2017-08-04] MED LIST changes: +MERREM VIA500 MG/VIA IV; +NYSTATIN CREAM15 GM TP
[2017-08-04 08:21] LABS: BASO % 0.5 % (0.0-2.0); EOS # 0.1 (0.0-0.7); EOS % 2.2 % (0-4.0); GRAN # 3.4 (1.4-6.5); GRAN % 58.8 % (42.2-75.2); LYMPH # 1.7 (1.2-3.4); LYMPH % 28.4 % (20.0-51.0); MEAN CELL VOLUME 98 fl (80.0-100.0); MEAN CORPUSCULAR HGB CONC 30 g/dl (33.0-37.0); MEAN PLATELET VOLUME 10.5 fl (7.4-10.4); MONO # 0.6 (0.1-0.6); MONO % 9.6 % (1.7-9.3); PLATELET COUNT 181 K/mm3 (130-400); RED BLOOD COUNT 2.78 M/mm3 (4.10-5.30); REDCELL DISTRIBUTION WIDTH-CV 21.3 % (11.5-14.5)
[2017-08-04 08:40] LABS: HEMATOCRIT 27.1 % (37.0-47.0); HEMOGLOBIN 8.2 g/dl (12.5-16.0); MEAN CORPUSCULAR HEMOGLOBIN 29 pg (27.0-31.0)
== END ==
LOC: ZCOL.LAB 08:13
PROVIDERS: Internal Medicine
DX: D50.0 Iron deficiency anemia secondary to blood loss (chronic) (principal)

== ENCOUNTER → 2017-09-01 | Outpatient (CLI) | payer MEDICARE, BC | LOC: COL.RAD 14:30 | DX: M25.452 Effusion, left hip (principal); Z98.890 Other specified postprocedural states ==

== ENCOUNTER 2018-01-04 14:55 | Inpatient (IN) | payer MEDICARE, BC ==
[~2018-01-04] VITALS: Ht 162.6 cm; Wt 72.7 kg
[2018-01-04 16:55] LABS: BASO # 0.1 (0.0-0.2); BASO % 0.3 % (0.0-2.0); GRAN # 17.2 (1.4-6.5); GRAN % 87.8 % (42.2-75.2); LYMPH # 0.8 (1.2-3.4); LYMPH % 3.9 % (20.0-51.0); MEAN CELL VOLUME 98 fl (80.0-100.0); MEAN CORPUSCULAR HGB CONC 32 g/dl (33.0-37.0); MEAN PLATELET VOLUME 10.2 fl (7.4-10.4); MONO # 0.6 (0.1-0.6); MONO % 3.1 % (1.7-9.3); PLATELET COUNT 158 K/mm3 (130-400); RED BLOOD COUNT 2.89 M/mm3 (4.10-5.30); REDCELL DISTRIBUTION WIDTH-CV 19.2 % (11.5-14.5)
[2018-01-04 16:56] LABS: HEMATOCRIT 28.4 % (37.0-47.0); MEAN CORPUSCULAR HEMOGLOBIN 31 pg (27.0-31.0)
[2018-01-04 17:01] LABS: ALBUMIN 3.2 gm/dL (3.5-5.0); BILIRUBIN,TOTAL 0.7 mg/dL (0.0-1.0); CALCIUM 8.8 mg/dL (8.4-10.2); CREATININE, serum 2.12 mg/dL (0.52-1.25); TOTAL PROTEIN 6.5 gm/dL (6.4-8.2)
[2018-01-04 17:27] LABS: INR 2.4 (0.8-3.0); PROTHROMBIN TIME 27.8 SECONDS (9.7-12.8)
[2018-01-04 17:30] VITALS: BP 125/67; PULSE 101; TEMP 98.8
[2018-01-04 17:30] LABS: PARTIAL THROMBOPLASTIN TIME 61.3 SECONDS (26.0-37.0)
[2018-01-04] MEDS ORDERED: COUMADIN 5MG5 MG/TAB PO (18:16)
[2018-01-04] MEDS ORDERED: MUCINEX 60600 MG/TA1 PO (18:16)
[2018-01-04 20:01] VITALS: BP 129/64; PULSE 90; TEMP 99.4
[2018-01-05] VITALS (7 sets, daily range): BP systolic 103–122; BP diastolic 52–66; PULSE 63–112; TEMP 97.3–98.6
[2018-01-05 06:34] LABS: MEAN CELL VOLUME 100 fl (80.0-100.0); MEAN CORPUSCULAR HGB CONC 31 g/dl (33.0-37.0); MEAN PLATELET VOLUME 11.2 fl (7.4-10.4); PLATELET COUNT 146 K/mm3 (130-400); RED BLOOD COUNT 2.69 M/mm3 (4.10-5.30); REDCELL DISTRIBUTION WIDTH-CV 18.9 % (11.5-14.5)
[2018-01-05 06:36] LABS: HEMATOCRIT 26.8 % (37.0-47.0); HEMOGLOBIN 8.3 g/dl (12.5-16.0); MEAN CORPUSCULAR HEMOGLOBIN 31 pg (27.0-31.0)
[2018-01-05 06:47] LABS: INR 2.7 (0.8-3.0); PROTHROMBIN TIME 30.3 SECONDS (9.7-12.8)
[2018-01-05 06:55] LABS: CALCIUM 8.4 mg/dL (8.4-10.2); CREATININE, serum 1.74 mg/dL (0.52-1.25); POTASSIUM 4.6 mmol/L (3.4-5.0)
[2018-01-05 07:06] LABS: BAND 11 % (0-10); LYMPHOCYTE 2 % (20.0-51.0); NEUTROPHILS 86 % (42.0-75.2); PLATELET ESTIMATE NORMAL (NORMAL)
[2018-01-05 07:07] LABS: ANISOCYTOSIS 1+; DOHLE BODIES PRESENT; HYPOCHROMIA 2+
[2018-01-06 03:55] VITALS: BP 115/62; PULSE 64; TEMP 98.5
[2018-01-06 07:28] LABS: MEAN CELL VOLUME 99 fl (80.0-100.0); MEAN CORPUSCULAR HGB CONC 31 g/dl (33.0-37.0); MEAN PLATELET VOLUME 11.4 fl (7.4-10.4); PLATELET COUNT 140 K/mm3 (130-400); RED BLOOD COUNT 2.47 M/mm3 (4.10-5.30)
[2018-01-06 07:31] LABS: HEMATOCRIT 24.5 % (37.0-47.0); HEMOGLOBIN 7.7 g/dl (12.5-16.0); MEAN CORPUSCULAR HEMOGLOBIN 31 pg (27.0-31.0)
[2018-01-06 07:43] LABS: CALCIUM 8.2 mg/dL (8.4-10.2); CREATININE, serum 1.62 mg/dL (0.52-1.25); POTASSIUM 4.1 mmol/L (3.4-5.0)
[2018-01-06 07:44] LABS: INR 4.7 (0.8-3.0)
[2018-01-06 07:48] LABS: BAND 6 % (0-10); LYMPHOCYTE 6 % (20.0-51.0); NEUTROPHILS 88 % (42.0-75.2); PROTHROMBIN TIME 53.2 SECONDS (9.7-12.8)
[2018-01-06 07:49] LABS: ANISOCYTOSIS 2+; PLATELET ESTIMATE NORMAL (NORMAL)
[2018-01-06 07:50] VITALS: BP 120/71; PULSE 67; TEMP 97.8
[2018-01-06 07:50] LABS: OVALOCYTES 1+; TOXIC GRANULATION PRESENT
[2018-01-06 11:39] LABS: COLLECTION METHOD CLEAN CATCH
[2018-01-06 11:47] LABS: MUCOUS Present /lpf; PH 5 (5-8); SQUAMOUS EPITHELIAL 0-2 /hpf; URINE APPEARANCE Clear; URINE BACTERIA None Seen /hpf; URINE BILIRUBIN Negative (NEGATIVE); URINE BLOOD 2+ (NEGATIVE); URINE COLOR Yellow; URINE GLUCOSE Negative (NEGATIVE); URINE KETONE Negative (NEGATIVE); URINE LEUKOCYTE ESTERASE Trace (NEGATIVE); URINE NITRATE Negative (NEGATIVE); URINE PROTEIN(semi-quant) 1+ (NEGATIVE); URINE RBC 0-2 /hpf; URINE UROBILINOGEN Negative (NEGATIVE)
[2018-01-06 12:03] VITALS: BP 104/52; PULSE 69; TEMP 98
[2018-01-06 16:09] VITALS: BP 111/60; PULSE 69; TEMP 98.1
[2018-01-06 19:08] VITALS: BP 119/63; PULSE 71; TEMP 97.9
[2018-01-06 23:43] VITALS: BP 107/62; PULSE 66; TEMP 97.7
[2018-01-07 03:53] VITALS: BP 142/67; PULSE 70; TEMP 98
[2018-01-07 07:05] LABS: BASO % 0.5 % (0.0-2.0); EOS % 0.6 % (0-4.0); GRAN # 5.5 (1.4-6.5); GRAN % 84.4 % (42.2-75.2); LYMPH # 0.7 (1.2-3.4); LYMPH % 11.4 % (20.0-51.0); MEAN CELL VOLUME 100 fl (80.0-100.0); MEAN CORPUSCULAR HGB CONC 31 g/dl (33.0-37.0); MEAN PLATELET VOLUME 11.1 fl (7.4-10.4); MONO # 0.1 (0.1-0.6); PLATELET COUNT 138 K/mm3 (130-400); REDCELL DISTRIBUTION WIDTH-CV 19.4 % (11.5-14.5)
[2018-01-07 07:06] LABS: HEMATOCRIT 26.1 % (37.0-47.0); HEMOGLOBIN 8.1 g/dl (12.5-16.0); MEAN CORPUSCULAR HEMOGLOBIN 31 pg (27.0-31.0)
[2018-01-07 07:13] LABS: CREATININE, serum 1.46 mg/dL (0.52-1.25); POTASSIUM 3.9 mmol/L (3.4-5.0)
[2018-01-07 07:15] LABS: INR 5.6 (0.8-3.0); PROTHROMBIN TIME 63.3 SECONDS (9.7-12.8)
[2018-01-07 08:07] VITALS: BP 117/67; PULSE 74; TEMP 98.5
[2018-01-07] MEDS ORDERED: AMOXICILLIN 8751 TAB PO (09:01)
[2018-01-07] MEDS ORDERED: COUMADIN 1MG1 MG/TAB PO (09:03)
== END 2018-01-07 11:50 | DRG 394 ==
LOC: MEDICAL 14:55
PROVIDERS: Family Medicine
DX: K62.89 Other specified diseases of anus and rectum (principal); N17.9 Acute kidney failure, unspecified; C56.2 Malignant neoplasm of left ovary; N18.4 Chronic kidney disease, stage 4 (severe); I12.9 Hypertensive chronic kidney disease with stage 1 through stage 4 chronic kidney disease, or unspecified chronic kidney disease; J44.9 Chronic obstructive pulmonary disease, unspecified; M06.9 Rheumatoid arthritis, unspecified; Z86.718 Personal history of other venous thrombosis and embolism; Z79.01 Long term (current) use of anticoagulants; Z87.891 Personal history of nicotine dependence; E86.0 Dehydration
CPT/HCPCS: J1200; J2020; J2185; J2405; J3480; J7030; J7512

== ENCOUNTER 2018-03-24 16:05 | Outpatient (RCR) | payer MEDICARE, BC ==
[2018-03-23 14:29] VITALS: BP 131/65; PULSE 78; TEMP 98.5
[2018-03-23 14:44] VITALS: BP 125/62; PULSE 76; TEMP 98
[2018-03-23 15:14] VITALS: BP 141/68; PULSE 76; TEMP 98.8
[2018-03-23 16:14] VITALS: BP 120/76; PULSE 68; TEMP 98
[2018-03-23 16:42] VITALS: BP 118/67; PULSE 74; TEMP 98.3
[~2018-03-24] VITALS: Ht 162.6 cm; Wt 70.4 kg
[2018-03-24 15:43] VITALS: BP 141/81; PULSE 92
[2018-03-24 15:56] VITALS: BP 122/76; PULSE 88; TEMP 98
[~2018-03-24 16:05] MED LIST changes: +AMOXICILLIN 8751 TAB PO; +COUMADIN 5MG5 MG/TAB PO; +MUCINEX 60600 MG/TA1 PO
[2018-03-24 16:11] VITALS: BP 123/72; PULSE 88; TEMP 98.2
[2018-03-24 16:41] VITALS: BP 119/74; PULSE 87; TEMP 98.3
[2018-03-24 17:21] VITALS: BP 124/79; PULSE 78; TEMP 98.1
== END 2018-03-24 19:00 | disposition home or self-care (01) ==
LOC: EUO
DX: C56.2 Malignant neoplasm of left ovary (principal); Z45.2 Encounter for adjustment and management of vascular access device; Z95.9 Presence of cardiac and vascular implant and graft, unspecified
CPT/HCPCS: J1644; J7050; P9016

== ENCOUNTER 2018-03-30 08:45 | Day surgery (SDC) | payer MEDICARE, BC ==
[~2018-03-30] VITALS: Ht 162.6 cm; Wt 70.5 kg
[2018-03-30 09:49] VITALS: BP 152/76; PULSE 76; TEMP 97.9
== END 2018-03-30 13:25 | disposition home or self-care (01) ==
LOC: SDCO 08:45
DX: N30.21 Other chronic cystitis with hematuria (principal); K63.2 Fistula of intestine; J44.9 Chronic obstructive pulmonary disease, unspecified; I10 Essential (primary) hypertension; Z79.01 Long term (current) use of anticoagulants; Z79.899 Other long term (current) drug therapy; E78.00 Pure hypercholesterolemia, unspecified

== ENCOUNTER 2018-09-03 11:35 | Emergency (ER) | payer MEDICARE, BC ==
[~2018-09-03] VITALS: Ht 162.6 cm; Wt 70.5 kg
[2018-09-03 11:49] VITALS: TEMP 98.5
[2018-09-03 12:41] LABS: BASO % 0.3 % (0.0-2.0); EOS % 0.3 % (0-4.0); GRAN # 3.1 (1.4-6.5); GRAN % 78.6 % (42.2-75.2); LYMPH # 0.6 (1.2-3.4); LYMPH % 15.5 % (20.0-51.0); MEAN CELL VOLUME 104 fl (80.0-100.0); MEAN CORPUSCULAR HGB CONC 30 g/dl (33.0-37.0); MEAN PLATELET VOLUME 10.8 fl (7.4-10.4); MONO # 0.2 (0.1-0.6); MONO % 4.8 % (1.7-9.3); PLATELET COUNT 152 K/mm3 (130-400); RED BLOOD COUNT 3.02 M/mm3 (4.10-5.30); REDCELL DISTRIBUTION WIDTH-CV 18.9 % (11.5-14.5)
[2018-09-03 12:44] LABS: HEMATOCRIT 31.3 % (37.0-47.0); HEMOGLOBIN 9.3 g/dl (12.5-16.0); MEAN CORPUSCULAR HEMOGLOBIN 31 pg (27.0-31.0)
[2018-09-03 12:49] LABS: INR 2.6 (0.8-3.0); PROTHROMBIN TIME 29.2 SECONDS (9.7-12.8)
[2018-09-03 12:54] LABS: CALCIUM 8.8 mg/dL (8.4-10.2); CREATININE, serum 1.9 mg/dL (0.52-1.25); POTASSIUM 4.1 mmol/L (3.4-5.0)
[2018-09-03] MEDS ORDERED: CEPHALEXIN500 M1 PO (13:05)
[2018-09-03 13:15] VITALS: BP 144/76; PULSE 76
== END 2018-09-03 13:30 | disposition home or self-care (01) ==
LOC: COL.ER 11:35
PROVIDERS: Emergency Medicine
DX: R60.9 Edema, unspecified (principal); Z79.01 Long term (current) use of anticoagulants

== ENCOUNTER → 2018-09-08 | Outpatient (CLI) | payer MEDICARE, BC | LOC: COL.RAD 12:49 | DX: N32.1 Vesicointestinal fistula (principal); N30.80 Other cystitis without hematuria | CPT/HCPCS: Q9967 ==

== ENCOUNTER 2018-10-17 08:48 | Emergency (ER) | payer MEDICARE, BC ==
[~2018-10-17] VITALS: Ht 172.7 cm; Wt 77.3 kg
[2018-10-17 09:14] VITALS: TEMP 101.2
[2018-10-17 09:22] LABS: MEAN CELL VOLUME 107 fl (80.0-100.0); MEAN CORPUSCULAR HGB CONC 28 g/dl (33.0-37.0); MEAN PLATELET VOLUME 11.7 fl (7.4-10.4); PLATELET COUNT 149 K/mm3 (130-400); RED BLOOD COUNT 2.48 M/mm3 (4.10-5.30); REDCELL DISTRIBUTION WIDTH-CV 19.2 % (11.5-14.5)
[2018-10-17 09:28] LABS: HEMATOCRIT 26.4 % (37.0-47.0); HEMOGLOBIN 7.5 g/dl (12.5-16.0); MEAN CORPUSCULAR HEMOGLOBIN 30 pg (27.0-31.0)
[2018-10-17 09:37] LABS: ALBUMIN 2.9 gm/dL (3.5-5.0); BILIRUBIN,TOTAL 0.8 mg/dL (0.0-1.0); CALCIUM 7.6 mg/dL (8.4-10.2); CREATININE, serum 1.88 (0.52-1.25); POTASSIUM 5.1 mmol/L (3.4-5.0); TOTAL PROTEIN 5.9 gm/dL (6.4-8.2)
[2018-10-17 09:41] LABS: ARTERIAL BLD GAS O2 SATURATION 96.8 % (92-100); ARTERIAL BLD GAS TCO2 CT 31.9; ARTERIAL BLOOD GAS BASE EXCESS 2.5 (-2-2); ARTERIAL BLOOD GAS HCO3 29.9 meq/L (22-26); ARTERIAL BLOOD GAS PCO2 63.1 mmHg (35-45); ARTERIAL BLOOD GAS PO2 112.7 mmHg (80-100); ARTERIAL BLOOD GAS pH 7.29 (7.35-7.45)
[2018-10-17 10:04] LABS: COLLECTION METHOD CATHETER
[2018-10-17 10:07] LABS: BAND 16 % (0-10); LYMPHOCYTE 4 % (20.0-51.0); NEUTROPHILS 78 % (42.0-75.2)
[2018-10-17 10:08] LABS: ANISOCYTOSIS 2+; PLATELET ESTIMATE NORMAL (NORMAL)
[2018-10-17 10:20] LABS: MUCOUS Present /lpf; PH 6 (5-8); SQUAMOUS EPITHELIAL None Seen /hpf; URINE APPEARANCE Turbid; URINE BACTERIA Many /hpf; URINE BILIRUBIN Negative (NEGATIVE); URINE BLOOD 2+ (NEGATIVE); URINE COLOR Red; URINE GLUCOSE Negative (NEGATIVE); URINE KETONE Trace (NEGATIVE); URINE LEUKOCYTE ESTERASE 1+ (NEGATIVE); URINE NITRATE Negative (NEGATIVE); URINE PROTEIN(semi-quant) 2+ (NEGATIVE); URINE RBC >50 /hpf
[2018-10-17 12:00] LABS: INR 1.9 (0.8-3.0); PROTHROMBIN TIME 21.6 SECONDS (9.7-12.8)
[2018-10-17 13:00] VITALS: BP 106/67; PULSE 83
== END 2018-10-17 13:15 | disposition short-term general hospital (02) ==
LOC: COL.ER 08:48
PROVIDERS: Emergency Medicine
DX: A41.9 Sepsis, unspecified organism (principal); R65.21 Severe sepsis with septic shock; N17.9 Acute kidney failure, unspecified; C56.9 Malignant neoplasm of unspecified ovary
CPT/HCPCS: J2543; J2930; J7030; J7060

== ENCOUNTER → 2018-10-28 | Outpatient (CLI) | payer MEDICARE, BC | LOC: COL.RAD 12:45 | DX: R22.2 Localized swelling, mass and lump, trunk (principal) ==

== ENCOUNTER 2018-11-10 11:55 | Emergency (ER) | payer MEDICARE, BC ==
[~2018-11-10] VITALS: Ht 162.6 cm; Wt 70.5 kg
[~2018-11-10 11:55] MED LIST changes: -PREDNISONE 2.52.5 MG PO
[2018-11-10 11:59] VITALS: TEMP 98.8
[2018-11-10] MEDS ORDERED: K-TAB10 PO (12:12)
[2018-11-10 12:33] LABS: BASO % 0.2 % (0.0-2.0); EOS % 0.3 % (0-4.0); GRAN # 9.2 (1.4-6.5); GRAN % 87.7 % (42.2-75.2); LYMPH % 9.6 % (20.0-51.0); MEAN CELL VOLUME 103 fl (80.0-100.0); MEAN CORPUSCULAR HGB CONC 29 g/dl (33.0-37.0); MEAN PLATELET VOLUME 12.2 fl (7.4-10.4); MONO # 0.2 (0.1-0.6); MONO % 1.9 % (1.7-9.3); PLATELET COUNT 140 K/mm3 (130-400); REDCELL DISTRIBUTION WIDTH-CV 18.6 % (11.5-14.5)
[2018-11-10 12:34] LABS: HEMATOCRIT 32.9 % (37.0-47.0); HEMOGLOBIN 9.6 g/dl (12.5-16.0); MEAN CORPUSCULAR HEMOGLOBIN 30 pg (27.0-31.0)
[2018-11-10 12:36] LABS: ALANINE AMINOTRANSFERASE < 6 U/L (9-52); ALBUMIN 3.1 gm/dL (3.5-5.0); ALKALINE PHOSPHATASE 150 U/L (50-136); ANION GAP 8 mmol/L (7-16); AST,SGOT 24 U/L (15-37); BILIRUBIN,TOTAL 0.8 mg/dL (0.0-1.0); BLOOD UREA NITROGEN 34 mg/dL (7-17); CALCIUM 8.9 mg/dL (8.4-10.2); CARBON DIOXIDE 38 mmol/L (22-30); CHLORIDE 92 mmol/L (98-107); CREATININE, serum 1.98 (0.52-1.25); GLUCOSE 113 mg/dL (74-106); POTASSIUM 4.6 mmol/L (3.4-5.0); SODIUM 138 mmol/L (137-145)
[2018-11-10 12:44] LABS: ARTERIAL BLD GAS O2 SATURATION 94.7 % (92-100); ARTERIAL BLD GAS TCO2 CT 41.8; ARTERIAL BLOOD GAS BASE EXCESS 13.1 (-2-2); ARTERIAL BLOOD GAS HCO3 39.8 meq/L (22-26); ARTERIAL BLOOD GAS PCO2 64.5 mmHg (35-45); ARTERIAL BLOOD GAS PO2 82.9 mmHg (80-100); ARTERIAL BLOOD GAS pH 7.41 (7.35-7.45)
[2018-11-10] MEDS ORDERED: DOXYCYCLINE 10100 MG PO ×3 (14:53→15:36)
[2018-11-10] MEDS ORDERED: PREDNISONE10 MG PO ×3 (15:05→15:38)
[2018-11-10 16:00] VITALS: BP 128/7; PULSE 100
== END 2018-11-10 16:00 | disposition home or self-care (01) ==
LOC: COL.ER 11:55
PROVIDERS: Emergency Medicine
DX: J44.1 Chronic obstructive pulmonary disease with (acute) exacerbation (principal); D64.9 Anemia, unspecified
CPT/HCPCS: J7512

== ENCOUNTER → 2018-12-09 | Outpatient (CLI) | payer MEDICARE, BC ==
[~2018-12-09] MED LIST changes: +DOXYCYCLINE 10100 MG PO
--- NOTE | 2018-12-09 08:33 | NUR ---
Patient's ABG performed @ 0833 on RA. Patient wears 2.5L continuous at home, however, states her portable O2 concentrator and on the way from [place] to [place] she remained on RA and charged her device. Dr. Ceballos notified of results @ time of ABG and is okay with her situation as long as SPO2 is greater than 90% on pulse oximeter. Patient left with adequate SPO2 readings, and concentrator on and delivered O2 per her 2.5L.
[2018-12-09 08:35] LABS: ARTERIAL BLD GAS O2 SATURATION 80.3 % (92-100); ARTERIAL BLD GAS TCO2 CT 33.3; ARTERIAL BLOOD GAS BASE EXCESS 7.4 (-2-2); ARTERIAL BLOOD GAS HCO3 31.9 meq/L (22-26); ARTERIAL BLOOD GAS PCO2 45.4 mmHg (35-45); ARTERIAL BLOOD GAS pH 7.47 (7.35-7.45)
[2018-12-09 08:36] LABS: ARTERIAL BLOOD GAS PO2 45.3 mmHg (80-100)
== END ==
LOC: COL.PUL 08:10
PROVIDERS: Internal Medicine Pulmonary Disease
DX: J44.9 Chronic obstructive pulmonary disease, unspecified (principal); R55 Syncope and collapse; Z87.891 Personal history of nicotine dependence

== ENCOUNTER 2018-12-11 14:42 | Emergency (ER) | payer MEDICARE, BC ==
[~2018-12-11] VITALS: Ht 162.6 cm; Wt 74.1 kg
[2018-12-11 14:44] VITALS: TEMP 99.4
[2018-12-11 15:48] LABS: ARTERIAL BLD GAS O2 SATURATION 93.5 % (92-100); ARTERIAL BLD GAS TCO2 CT 31.3; ARTERIAL BLOOD GAS BASE EXCESS 4.7 (-2-2); ARTERIAL BLOOD GAS HCO3 29.8 meq/L (22-26); ARTERIAL BLOOD GAS pH 7.41 (7.35-7.45)
[2018-12-11 16:00] LABS: MEAN CELL VOLUME 100 fl (80.0-100.0); MEAN CORPUSCULAR HGB CONC 30 g/dl (33.0-37.0); MEAN PLATELET VOLUME 13.9 fl (7.4-10.4); PLATELET COUNT 60 K/mm3 (130-400); RED BLOOD COUNT 2.31 M/mm3 (4.10-5.30); REDCELL DISTRIBUTION WIDTH-CV 18.5 % (11.5-14.5)
[2018-12-11 16:13] LABS: HEMOGLOBIN 6.8 g/dl (12.5-16.0); MEAN CORPUSCULAR HEMOGLOBIN 29 pg (27.0-31.0)
[2018-12-11 16:17] LABS: ALBUMIN 2.6 gm/dL (3.5-5.0); BILIRUBIN,TOTAL 0.6 mg/dL (0.0-1.0); CREATININE, serum 2.22 (0.52-1.25); POTASSIUM 4.2 mmol/L (3.4-5.0); TOTAL PROTEIN 6.1 gm/dL (6.4-8.2)
[2018-12-11 16:29] LABS: COLLECTION METHOD CATHETER
[2018-12-11 16:34] LABS: C-REACTIVE PROTEIN 22.4 mg/dL (0.0-0.9); TROPONIN-I 0.047 ng/mL (0.000-0.035)
[2018-12-11 16:36] LABS: ERYTHROCYTE SEDIMENTATION RATE > 140 mm/hr (0-30)
[2018-12-11 16:51] LABS: MUCOUS Present /lpf; PH 7 (5-8); URINE APPEARANCE Turbid; URINE BACTERIA Many /hpf; URINE BILIRUBIN Negative (NEGATIVE); URINE BLOOD 1+ (NEGATIVE); URINE COLOR Amber; URINE GLUCOSE Negative (NEGATIVE); URINE KETONE Negative (NEGATIVE); URINE LEUKOCYTE ESTERASE Negative (NEGATIVE); URINE NITRATE Negative (NEGATIVE); URINE PROTEIN(semi-quant) 2+ (NEGATIVE); URINE UROBILINOGEN Negative (NEGATIVE)
[2018-12-11 17:48] LABS: MYELOCYTE 4 % (0-0); NEUTROPHILS 20 % (42.0-75.2)
[2018-12-11 17:49] LABS: PLATELET ESTIMATE DECREASED (NORMAL)
[2018-12-11 17:50] LABS: ANISOCYTOSIS 1+; HYPOCHROMIA 2+; MICROCYTOSIS 1+; POLYCHROMASIA 1+
[2018-12-11 17:51] LABS: LYMPHOCYTE 66 % (20.0-51.0)
[2018-12-11 18:55] VITALS: BP 95/56; PULSE 84
== END 2018-12-11 18:55 | disposition short-term general hospital (02) ==
LOC: COL.ER 14:42
PROVIDERS: Emergency Medicine
DX: N19 Unspecified kidney failure (principal); D70.9 Neutropenia, unspecified; R50.81 Fever presenting with conditions classified elsewhere; R79.89 Other specified abnormal findings of blood chemistry; J44.9 Chronic obstructive pulmonary disease, unspecified; C56.9 Malignant neoplasm of unspecified ovary
CPT/HCPCS: J1720; J2543; J3370; J7030; J7050

== ENCOUNTER 2019-01-11 12:35 | Observation (INO) | payer MEDICARE, BC ==
[~2019-01-11] VITALS: Ht 165.1 cm; Wt 72.9 kg
[2019-01-11 14:04] LABS: MEAN CELL VOLUME 102 fl (80.0-100.0); MEAN CORPUSCULAR HGB CONC 29 g/dl (33.0-37.0); PLATELET COUNT 98 K/mm3 (130-400); RED BLOOD COUNT 2.94 M/mm3 (4.10-5.30)
[2019-01-11 14:06] LABS: HEMOGLOBIN 8.6 g/dl (12.5-16.0); MEAN CORPUSCULAR HEMOGLOBIN 29 pg (27.0-31.0)
[2019-01-11 14:54] LABS: ALANINE AMINOTRANSFERASE < 6 U/L (9-52); ALBUMIN 2.9 gm/dL (3.5-5.0); ALKALINE PHOSPHATASE 118 U/L (50-136); ANION GAP 4 mmol/L (7-16); AST,SGOT 24 U/L (15-37); BILIRUBIN,TOTAL 0.5 mg/dL (0.0-1.0); BLOOD UREA NITROGEN 19 mg/dL (7-17); CARBON DIOXIDE 37 mmol/L (22-30); CHLORIDE 100 mmol/L (98-107); CREATININE, serum 1.67 (0.52-1.25); GLUCOSE 74 mg/dL (74-106); POTASSIUM 4.6 mmol/L (3.4-5.0); SODIUM 141 mmol/L (137-145); TOTAL PROTEIN 7.1 gm/dL (6.4-8.2)
[2019-01-11 15:02] LABS: BASOPHIL 1 % (0-2); EOSINOPHIL 1 % (0-4); MYELOCYTE 1 % (0-0); NEUTROPHILS 49 % (42.0-75.2)
[2019-01-11 15:03] LABS: ANISOCYTOSIS 2+; HYPOCHROMIA 1+; LYMPHOCYTE 46 % (20.0-51.0); PLATELET ESTIMATE NORMAL (NORMAL)
[2019-01-11] MEDS ORDERED: LASIX 40MG TABL40 MG PO (16:25)
[2019-01-11] MEDS ORDERED: CEPHALEXIN500 M1 PO (16:25)
[2019-01-11] MEDS ORDERED: MACROBID 1100 MG/CAP PO (16:31)
[2019-01-11] MEDS ORDERED: NORCO 325 MG-51 TAB PO (16:31)
[2019-01-11] MEDS ORDERED: PREDNISONE 2.52.5 MG PO (16:33)
[2019-01-11] MEDS ORDERED: K-DUR20 MEQ PO (16:33)
[2019-01-11] MEDS ORDERED: VITAMIN C500 MG PO (16:33)
[2019-01-11] MEDS ORDERED: MASON NATURAL2000 IU (16:34)
[2019-01-11 18:07] VITALS: BP 127/66; PULSE 84; TEMP 98.9
--- NOTE | 2019-01-11 18:38 | NUR ---
Admission assessment completed, alert/oriented, vital signs stable/ afebrile, WBC WNL, she report tenderness to right side neck/ redness and some blister/boils noted, her port site is furthher down on the chest and there is not redness at the PORT site itself, consulted for possible Sx/ PORT removal, lungs CTA/ no resp.difficulry, on 2L.o2 at baseline, heart RRR/Distal pulse are palpable, Meds/allergies/pharmacy reviewed with patient, she has other skin issues, denies other needs at this time, will continue to monitor
[2019-01-11 19:50] VITALS: BP 146/68; PULSE 96; TEMP 97.5
--- NOTE | 2019-01-11 22:00 | NUR ---
Shift assessment complete. Patient in bed, awake. Denies pain. States, IV is painful. Drainage noted at site, slight redness. IV removed. New IV placed by Quang Floor Technician. Denies further needs at this time, will continue to monitor.
[2019-01-11 23:58] VITALS: BP 131/73; PULSE 71; TEMP 97.4
[2019-01-12 04:10] VITALS: BP 133/63; PULSE 70; TEMP 97.6
[2019-01-12 08:17] LABS: MEAN CELL VOLUME 102 fl (80.0-100.0); MEAN CORPUSCULAR HGB CONC 28 g/dl (33.0-37.0); MEAN PLATELET VOLUME 12.3 fl (7.4-10.4); PLATELET COUNT 113 K/mm3 (130-400); RED BLOOD COUNT 2.67 M/mm3 (4.10-5.30); REDCELL DISTRIBUTION WIDTH-CV 19.5 % (11.5-14.5)
[2019-01-12 08:20] LABS: HEMATOCRIT 27.2 % (37.0-47.0); HEMOGLOBIN 7.7 g/dl (12.5-16.0); MEAN CORPUSCULAR HEMOGLOBIN 29 pg (27.0-31.0)
[2019-01-12 08:21] LABS: CALCIUM 8.5 mg/dL (8.4-10.2); CREATININE, serum 1.63 (0.52-1.25); POTASSIUM 4.8 mmol/L (3.4-5.0)
[2019-01-12 08:34] VITALS: BP 146/69; PULSE 74; TEMP 97.2
[2019-01-12 09:00] LABS: ANISOCYTOSIS 2+; HYPOCHROMIA 1+; LYMPHOCYTE 19 % (20.0-51.0); NEUTROPHILS 78 % (42.0-75.2); PLATELET ESTIMATE DECREASED (NORMAL)
--- NOTE | 2019-01-12 09:58 | NUR ---
Assessment completed, alert/oriented, vital signs stable/ afebrile, heart RRR/ distal pules are palpbale, lungs CTA/ no reps.difficulty on baseline 2L. o2, redness to right neck is unchanged from yesterday, plans for surgery to removed PORTacath today at 1130 by , patient NPo and consent signed, she is up in the chair and denies needs at this time
[2019-01-12] MEDS ORDERED: CEPHALEXIN500 M1 PO (13:58)
--- NOTE | 2019-01-12 15:00 | NUR ---
SW met with patient to discuss discharge planning. Patient lives at the [facility] in [place]. Patient's PCP is Dr Jose Green and she obtains prescriptions from the [facility]. Patient uses a wheelchair or walker for mobility and oxygen at home. Patient has PT/OT from [facility]. Patient does have a DPOA-HC in the EMR. Patient will discharge later today. MARIAM arranged transportation and faxed discharge orders.
--- NOTE | 2019-01-12 15:09 | NUR ---
Initial visit; Patient thanked Handwriting Expert for stopping by. She is hoping to be discharged home this afternoon. Handwriting Expert wished her well.
--- NOTE | 2019-01-12 17:40 | NUR ---
[place] [facility] [place] removed, discharge instructions discussed with the patient
== END 2019-01-12 17:40 | disposition home or self-care (01) ==
LOC: COL.ER 12:35 → MEDICAL 16:26
PROVIDERS: Emergency Medicine; Student in an Organized Health Care Education/Training Program; ADMIT Internal Medicine
DX: Z95.828 Presence of other vascular implants and grafts (principal); L03.90 Cellulitis, unspecified; J44.9 Chronic obstructive pulmonary disease, unspecified; N18.9 Chronic kidney disease, unspecified; D53.9 Nutritional anemia, unspecified; D69.6 Thrombocytopenia, unspecified; G47.33 Obstructive sleep apnea (adult) (pediatric); M06.9 Rheumatoid arthritis, unspecified; E78.5 Hyperlipidemia, unspecified; G62.9 Polyneuropathy, unspecified; Z85.43 Personal history of malignant neoplasm of ovary; Z99.81 Dependence on supplemental oxygen; Z92.21 Personal history of antineoplastic chemotherapy; Z79.52 Long term (current) use of systemic steroids; Z96.611 Presence of right artificial shoulder joint; Z90.710 Acquired absence of both cervix and uterus; Z87.891 Personal history of nicotine dependence; Z96.641 Presence of right artificial hip joint; Z88.3 Allergy status to other anti-infective agents; Z88.6 Allergy status to analgesic agent; Z91.013 Allergy to seafood
CPT/HCPCS: J0690; J1200; J2704; J2930; J3010; J7030; J7512; Q9967

== ENCOUNTER 2019-05-31 09:27 | Day surgery (SDC) | payer MEDICARE, BC ==
[~2019-05-31] VITALS: Ht 162.6 cm; Wt 73.8 kg
[~2019-05-31 09:27] MED LIST changes: +FERRO-TIME325 MG PO; +K-DUR 10 MEQ T10 MEQ PO; +MACROBID 1100 MG/CAP PO; +MASON NATURAL2000 IU; +MULTI VITAMINS1 TAB PO; +OYSTER SHELL C500 MG PO; +PREDNISONE 2.52.5 MG PO; +VITAMIN C500 MG PO
[2019-05-31 10:15] VITALS: BP 124/67; PULSE 79; TEMP 98.2
[2019-05-31 14:04] VITALS: BP 117/54; PULSE 78; TEMP 97.4
[2019-05-31] MEDS ORDERED: ULTRAM 50MG TAB50 MG PO (14:11)
[2019-05-31 14:15] VITALS: BP 120/62; PULSE 66
--- NOTE | 2019-05-31 14:15 | NUR ---
Muffin and soda given per pt request. Pt assisted to sitting up further. Pt denies needs at this time. Call light within reach.
[2019-05-31 14:30] VITALS: BP 98/67; PULSE 109
--- NOTE | 2019-05-31 14:30 | NUR ---
Pt tolerated po food and fluids. Pt denies needs at this time.
--- NOTE | 2019-05-31 14:40 | NUR ---
Pt [place] [facility] [place] cart from OR. Pt drowsy, but arouses easily to verbal stimuli. Pt denies pain or nausea. Dressing and bandaid to left upper chest is clean, dry, and intact. VSS. Will continue to monitor.
[2019-05-31 14:45] VITALS: BP 117/71; PULSE 71
--- NOTE | 2019-05-31 14:45 | NUR ---
Pt is requesting to get dressed for discharge. Orders recieved from for PICC line removal. Pt ok with waiting to get dressed till PICC line is removed.
[2019-05-31 15:15] VITALS: BP 107/52; PULSE 76
--- NOTE | 2019-05-31 15:15 | NUR ---
ARSEN is not here at this time. Payal DIALLO from ICU will be removing the PICC line.
--- NOTE | 2019-05-31 15:30 | NUR ---
Payal RN at bedside. She removed picc line with 43cm removed. Pressure held x5 minutes and dressing applied. Pt to lay supine for 15 minutes. Discharge instructions reviewed with pt during this time. She voices understanding.
--- NOTE | 2019-05-31 15:45 | NUR ---
Pt assisted with dressing. Picc removal site/dressing is clean, dry and intact. Pt escorted to [facility] transportation vehicle. Pt accompanied back to [facility] by their staff.
--- NOTE | 2019-05-31 16:25 | NUR ---
Report given to Aimee DIALLO at [facility]. Questions invited and answered.
== END 2019-05-31 15:45 | disposition home or self-care (01) ==
LOC: SDCO 09:27
DX: C56.9 Malignant neoplasm of unspecified ovary (principal); D64.81 Anemia due to antineoplastic chemotherapy; D72.819 Decreased white blood cell count, unspecified; E11.42 Type 2 diabetes mellitus with diabetic polyneuropathy; M06.9 Rheumatoid arthritis, unspecified; J44.9 Chronic obstructive pulmonary disease, unspecified; D69.6 Thrombocytopenia, unspecified; B02.9 Zoster without complications; I12.9 Hypertensive chronic kidney disease with stage 1 through stage 4 chronic kidney disease, or unspecified chronic kidney disease; N18.9 Chronic kidney disease, unspecified; G47.33 Obstructive sleep apnea (adult) (pediatric); K21.9 Gastro-esophageal reflux disease without esophagitis; G89.29 Other chronic pain; Z86.718 Personal history of other venous thrombosis and embolism; Z87.891 Personal history of nicotine dependence; Z90.710 Acquired absence of both cervix and uterus; Z80.9 Family history of malignant neoplasm, unspecified; Z82.49 Family history of ischemic heart disease and other diseases of the circulatory system; Z88.3 Allergy status to other anti-infective agents; Z88.6 Allergy status to analgesic agent; Z91.013 Allergy to seafood; Z96.652 Presence of left artificial knee joint; Z96.611 Presence of right artificial shoulder joint; Z99.81 Dependence on supplemental oxygen
CPT/HCPCS: C1788; J1644; J2250; J2704; J7120

== ENCOUNTER 2019-08-22 16:45 | Emergency (ER) | payer MEDICARE, BC ==
[~2019-08-22] VITALS: Ht 162.6 cm; Wt 72.3 kg
[~2019-08-22 16:45] MED LIST changes: +ULTRAM 50MG TAB50 MG PO
[2019-08-22 17:09] VITALS: TEMP 98.2
[2019-08-22 18:32] LABS: MEAN CELL VOLUME 104 fl (80.0-100.0); MEAN CORPUSCULAR HGB CONC 29 g/dl (33.0-37.0); MEAN PLATELET VOLUME 13.1 fl (7.4-10.4); PLATELET COUNT 83 K/mm3 (130-400); RED BLOOD COUNT 2.94 M/mm3 (4.10-5.30); REDCELL DISTRIBUTION WIDTH-CV 18.6 % (11.5-14.5)
[2019-08-22 18:43] LABS: ALANINE AMINOTRANSFERASE 9 U/L (9-52); ALBUMIN 3.9 gm/dL (3.5-5.0); ALKALINE PHOSPHATASE 115 U/L (50-136); ANION GAP 7 mmol/L (7-16); AST,SGOT 24 U/L (15-37); BILIRUBIN,TOTAL 0.5 mg/dL (0.0-1.0); BLOOD UREA NITROGEN 36 mg/dL (7-17); CALCIUM 9.2 mg/dL (8.4-10.2); CARBON DIOXIDE 35 mmol/L (22-30); CHLORIDE 96 mmol/L (98-107); CREATININE, serum 1.88 (0.52-1.25); GLUCOSE 100 mg/dL (74-106); LIPASE 56 U/L (23-300); POTASSIUM 4.9 mmol/L (3.4-5.0); SODIUM 139 mmol/L (137-145); TOTAL PROTEIN 7.7 gm/dL (6.4-8.2)
[2019-08-22 18:45] LABS: HEMATOCRIT 30.6 % (37.0-47.0); HEMOGLOBIN 8.9 g/dl (12.5-16.0); MEAN CORPUSCULAR HEMOGLOBIN 30 pg (27.0-31.0)
[2019-08-22 18:56] LABS: TROPONIN-I < 0.012 ng/mL (0.000-0.035)
[2019-08-22 19:48] LABS: COLLECTION METHOD CLEAN CATCH
[2019-08-22] MEDS ORDERED: OMNICEF 300MG300 MG PO (19:57)
[2019-08-22 20:07] LABS: LYMPHOCYTE 10 % (20.0-51.0); NEUTROPHILS 88 % (42.0-75.2)
[2019-08-22 20:08] LABS: PLATELET ESTIMATE DECREASED (NORMAL)
[2019-08-22 20:11] LABS: ANISOCYTOSIS 2+; HYPOCHROMIA 3+
[2019-08-22 20:42] VITALS: BP 122/69; PULSE 86
[2019-08-22 20:44] LABS: AMORPHOUS CRYSTAL Present /uL; MUCOUS Present /lpf; PH 9 (5-8); URINE APPEARANCE Turbid; URINE BACTERIA Many /hpf; URINE BILIRUBIN Negative (NEGATIVE); URINE BLOOD 3+ (NEGATIVE); URINE COLOR Amber; URINE GLUCOSE Negative (NEGATIVE); URINE KETONE Negative (NEGATIVE); URINE LEUKOCYTE ESTERASE 2+ (NEGATIVE); URINE NITRATE Negative (NEGATIVE); URINE PROTEIN(semi-quant) 2+ (NEGATIVE); URINE RBC >50 /hpf; URINE UROBILINOGEN Negative (NEGATIVE)
== END 2019-08-22 20:42 | disposition home or self-care (01) ==
LOC: COL.ER 16:45
PROVIDERS: Emergency Medicine
DX: N39.0 Urinary tract infection, site not specified (principal); R91.1 Solitary pulmonary nodule; C56.9 Malignant neoplasm of unspecified ovary; Z79.52 Long term (current) use of systemic steroids
CPT/HCPCS: A4216; J0696; J7030

== ENCOUNTER 2019-11-20 13:00 | Outpatient (RCR) | payer MEDICARE, BC ==
--- NOTE | 2019-11-17 17:29 | NUR ---
Pt will be called when blood comes [facility] to be transfusion.
[2019-11-20] VITALS (8 sets, daily range): BP systolic 100–133; BP diastolic 46–68; PULSE 62–80; TEMP 98.8–99
[~2019-11-20 13:00] MED LIST changes: +OMNICEF 300MG300 MG PO
== END 2019-11-20 17:17 | disposition home or self-care (01) ==
LOC: EUO 13:00
PROVIDERS: Internal Medicine
DX: C56.2 Malignant neoplasm of left ovary (principal); D64.81 Anemia due to antineoplastic chemotherapy
CPT/HCPCS: J1644; J7050; P9016

== ENCOUNTER → 2019-12-13 | Outpatient (CLI) | payer MEDICARE, BC | LOC: COL.RAD 08:58 | DX: C56.2 Malignant neoplasm of left ovary (principal); J43.9 Emphysema, unspecified; S27.321A Contusion of lung, unilateral, initial encounter; C79.51 Secondary malignant neoplasm of bone; R91.1 Solitary pulmonary nodule; N28.1 Cyst of kidney, acquired; K80.20 Calculus of gallbladder without cholecystitis without obstruction; M16.12 Unilateral primary osteoarthritis, left hip; S73.005A Unspecified dislocation of left hip, initial encounter; Z90.710 Acquired absence of both cervix and uterus; Z96.641 Presence of right artificial hip joint ==

== ENCOUNTER → 2019-12-28 | Outpatient (CLI) | payer MEDICARE, BC ==
[2019-12-28] VITALS (10 sets, daily range): BP systolic 128–155; BP diastolic 61–81; PULSE 67–75
[~2019-12-28] MED LIST changes: +MASON NATURAL S1 CAP PO; -MULTI VITAMINS1 TAB PO; +OSCAL 500 TAB500 MG PO; -OYSTER SHELL C500 MG PO
--- NOTE | 2019-12-28 13:00 | NUR ---
Dr Johnson informed nurse that he had talked with Dr Gillespie and they were going to do a biopsy of the liver mass instead of the pelvic biopsy.
--- NOTE | 2019-12-28 13:45 | NUR ---
pt to ct per wheelchair. Pt positioned on left side down. Monitors applied. O2 continues at 2l/nc.
--- NOTE | 2019-12-28 14:04 | NUR ---
Specimens obtained and placed in formalin by Dr Johnson. Specimen labeled.
--- NOTE | 2019-12-28 15:20 | NUR ---
Pt out to car per wheelchair. Pt into van from residential without assistance. Denies pain at this time.
== END ==
LOC: COL.RAD 12:45
DX: C56.2 Malignant neoplasm of left ovary (principal); R16.0 Hepatomegaly, not elsewhere classified